=== PATIENT | male | born 1950 | race Caucasian/White ===

== ENCOUNTER 2022-09-28 14:04 | Outpatient (REF) | payer MEDICARE, MEDICAID, SELFPAY ==
--- NOTE | ~2022-09-28 | FL_ITS ---
EXAMINATION: XR BARIUM SWALLOW MODIFIED CLINICAL INFORMATION: Esophageal dysfunction COMPARISON: None available. TECHNIQUE: A modified barium swallow study is performed with pathology. FINDINGS: The patient was observed in the lateral projection while ingesting varying consistencies of barium as directed by the speech pathologist. No laryngeal penetration or aspiration was observed. Total dose 8.794 mGy DAP 1.721 Gycm/2 Time 0.7 min FL/FL barium swallow modified IMPRESSION: Modified barium swallow study. No aspiration demonstrated. Correlate with the speech pathologist report.
--- NOTE | 2022-09-28 16:31 | MHC.SL.IMP ---
Date of Plan of Treatment: 09/28/22 Onset of Symptoms/Illness: 05/20/22 Date Treatment Started: 09/28/22 Admitting Diagnosis: L-CVA w/ hemiparesis and aphasia Primary Speech & Language Diagnosis: R13.11 Oral Phase Dysphagia Secondary Speech & Language Diagnosis: R47.01 Aphasia Reason for Today's Visit: 55267 Modified Barium Swallow Study Pre-evaluation Dietary Consistencies: Chopped/Advanced (NDD3) Pre-evaluation Liquid Consistency: Thin Pre-evaluation Medication Administration: UNK Medical History: Modified Barium Swallow Study Fluoroscopic Evaluation of Swallowing Function CPT Code 31258 Evaluation Year: 2022 Reason for Study: Pt has history of CVA. Referring Physician: Paige Sawyer PA-C Evaluating Clinician: Carol Mohan MA, CCC-SADDLE MAKER Study Number: 1 Patient Name: Thang Mcmahan Status: Outpatient, Wheelchair Age: 72 Gender: Male Medical History L-CVA w/ hemiparesis and aphasia, PVD, HTN, HLD, falls, depression Current (pre-evaluation) Intake/Diet: Route: PO Diet Grade: ?Chopped? Liquid Consistencies: Thin Pre-Study Functional Oral Intake Scale (FOIS): 5- Total oral intake of multiple consistencies requiring special preparation Pain: None reported at time of study SUBJECTIVE: Pt is a 72 year old male, LTC resident of [facility]. He attended this exam accompanied by nursing staff from the living facility. Pt has history of stroke in May 2022, was discharged from acute rehab to LTC facility. He was seen for an outpatient speech evaluation [place] [facility] [place]. Pt was found to have severe Broca?s aphasia and was recommended to continue speech therapy at the facility. When seen for his speech evaluation, patient reported he was on a chopped diet. Today, pt denied having difficulty swallowing and endorsed that sometimes his food ?comes chopped up.? Oral Motor Exam Mouth Occlusion: Normal Oral-Facial Teeth Characteristics: Dentures Oral-Facial Teeth Miscellaneous Observation: Pt has top and bottom dentures Tongue Size: Normal Tongue Frenum Length: Tongue Range of Movement Description: Normal Tongue Speed of Movement Description: Reduced Tongue Strength of Movement (against opposing pressure): Reduced to L-side Tongue Movement Characteristics: Normal/Absent Is patient able to manage secretions?: Yes Food and Liquid Trials: Oral Impairment: Lip Closure: Did not test Oral Impairment: Tongue Control During Bolus Hold: Did not test Oral Impairment: Bolus Preparation/Mastication: 0=Timely and efficient chewing and mashing Oral Impairment: Bolus Transport/Lingual Motion: 2=Slowed tongue motion Oral Impairment: Oral Residue: 1=Trace residue lining oral structures Oral Impairment:Initiation of Pharyngeal Swallow: 2=Bolus head at posterior laryngeal surface of epiglottis Pharyngeal Impairment: Soft Palate Elevation: 0=No bolus between soft palate (SP)/pharyngeal wall (PW) Pharyngeal Impairment: Laryngeal Elevation: 1=Partial thyroid cartilage/arytenoids to epiglottic petiole movement Pharyngeal Impairment: Anterior Hyoid Excursion: 1=Partial anterior movement Pharyngeal Impairment: Epiglottic Movement: 0=Complete inversion Pharyngeal Impairment: Laryngeal Vestibular Closure:: 0=Complete: no air/contrast in laryngeal vestibule Pharyngeal Impairment: Pharyngeal Stripping Wave: 1=Present: diminished Pharyngeal Impairment: Pharyngeal Contraction: Did not test Pharyngeal Impairment: Pharyngoesophageal Segment Openin=Complete distension and complete duration: no obstruction of flow Pharyngeal Impairment: Tongue Base (TB) Retraction: 2=Narrow column of contrast/air between TB and posterior PW Pharyngeal Impairment: Pharyngeal Residue: 1=Trace residue within or on pharyngeal structures Pharyngeal Impairment: Esophageal Clearance Upright Position: Did not test Impressions and Recommendations OBJECTIVE: Time-out: performed at 14:45 Evaluation Start: 14:30; Stop: 14:32 Patient Positioning: Seated 70-90 degrees Viewing Planes: LATERAL ONLY Contrast: MBSImP? Standardized Protocol using commercially prepared, standardized Barium viscosities, including: Varibar? THIN LIQUID (40% w/v, <15 cps) MBSImP ID: [id number] MBSImP Results: Lip closure for intraoral bolus containment could not be assessed due to logistical reasons not related to physiologic impairment. Tongue control during bolus hold could not be assessed due to logistical reasons not related to physiologic impairment. Bolus preparation and mastication resulted in timely and efficient chewing and mashing. Bolus transport/lingual motion was with slowed tongue motion. Oral residue was a trace, lining oral structures. Initiation of the pharyngeal swallow occurred as the bolus head was at the posterior laryngeal surface of the epiglottis. Soft palate elevation resulted in no bolus between the soft palate and the pharyngeal wall. Laryngeal elevation was decreased, with partial superior movement of the thyroid cartilage/partial approximation of the arytenoids to the epiglottic petiole. Anterior hyoid excursion demonstrated partial anterior movement. Epiglottic movement resulted in complete inversion. Laryngeal vestibular closure was complete, as indicated by no air or contrast within the laryngeal vestibule at the height of the swallow. Pharyngeal stripping wave was present, but diminished. Pharyngeal contraction could not be determined due to logistical reasons not related to physiologic impairment. Pharyngoesophageal segment opening was completely distended for complete duration with no obstruction of bolus flow. Tongue base retraction allowed a narrow column of contrast or air between the retracted tongue base and the posterior pharyngeal wall. Pharyngeal residue was a trace within or on pharyngeal structures. Esophageal clearance in the upright position could not be assessed due to logistical reasons not related to physiologic impairment. Oral Impairment Score: 4 (absence of score, component 1component 2) Pharyngeal Impairment Score: 5 (absence of score, component 13) Esophageal Impairment Score: --- (absence of score, component 17) Laryngeal Penetration and Aspiration: Neither penetration nor aspiration was observed in today's study with Thin. ASSESSMENT: Clinician Assessment: This exam was conducted by a multidisciplinary team, which included a speech pathologist, radiologist, and mapping technician. Pt was seated at 90 degrees for lateral view only. Pt trialed the following liquid and solid consistencies: sequential sips thin liquid barium by cup, pureed solid (applesauce mixed with barium paste), ground solid (chicken salad with barium paste), whole barium pill tablet with sips of water and bite of applesauce. Pt was offered a bite of a shortbread cookie, but refused harder solids and indicated he would have difficulty chewing it. Pt demonstrated timely and efficient mastication pattern with soft solid. Lingual motion for the posterior transport of bolus was mildly slowed. Mild lingual residue cleared with subsequent swallow. Pharyngeal swallow trigger initiated as the bolus head reached the posterior laryngeal surface of the epiglottis. There was no nasopharyngeal reflux. Laryngeal elevation was incomplete with partial anterior hyoid excursion. Complete epiglottic inversion and complete laryngeal vestibular closure. There was no evidence of aspiration or penetration during this exam. There was trace residue on the tongue base, which subsequently cleared. Good clearance of the valleculae and pyriform sinuses. Pt attempted to swallow barium pill with sips of water. He swallowed the water, but was unable to clear the pill from his mouth. Pt was able to swallow pill with teaspoon of applesauce, pill passed through the pharynx with no hang up. Liquid Intake Recommendation: Thin Liquid Intake Strategies: Small Sips Dietary Recommendations: Grnd/Mech Altered (NDD2) Medication Administration: Whole with Puree Please contact the pharmacy regarding appropriate crushable or liquid drug formulations that are available whenever modified delivery is recommended. Compensatory Strategies Recommended: Sitting Upright (90 deg), Double Swallow, Small Bites and Sips, Alternate Liquids/Solids, Rate of Ingestion Change, Oral Check Supervision during eating and or drinking: Total Supervision (1:1) Recommendation for Speech Therapy: Speech Therapy through Rehab Facility Text Comment: Recommend total supervision and aspiration precautions, continue with modified diet for ease of mastication (ground/mech altered versus chopped/advanced per pt's tolerance). Pt was seen by SADDLE MAKER at [facility] [place] speech evaluation on 08/15/22 and was recommended to continue speech therapy at the living facility for treatment of severe Broca's aphasia. Recommend speech therapy to also target further education and support regarding the modified diet and aspiration precautions. Intake Recommendations: Route: PO Diet Grade: Mechanical Soft vs. Chopped/Advanced Liquid Consistencies: Thin Post-Study Functional Oral Intake Scale (FOIS): 5- Total oral intake of multiple consistencies requiring special preparation No evidence of aspiration or penetration during this exam. Pt demonstrated good clearance of oral cavity and pharynx. Pt was offered trials of harder solid consistency, but refused and indicated he would not be able to chew it. Therefore we were not able to trial beyond ground textures during this exam. Pt has top and bottom dentures and tolerated a soft chicken salad during this exam. Recommend ground/mechanically altered diet (NDD2), or if tolerated by patient, continue with chopped/advanced (NDD3) textures, thin liquids, and pills whole in puree. Recommend supervision during meals, provide assistance with tray set up and throughout meal as needed (i.e. opening of containers, providing cues as needed for aspiration precautions): take small bites, chew food well, moisten foods with sauces/gravies as needed, clear oral cavity before taking more bites, take small sips, one sip at a time, upright 90 degree position. Prognosis for Improvement: The prognosis for the patient to meet nutritional needs by mouth is excellent based on degree of impairment. Clinician - Supplemental, Miscellaneous Communication: It is important to note MBSS objective studies are snapshots in time and Patient function might vary with factors such as time of day or concomitant medical conditions. For this reason, the final treatment plan for this patient should rest with their medical care team. Additional recommendations should be considered with the totality of the Patient in mind. Thank for the opportunity to participate in the care of this patient. If you have any questions about the content of this report, please contact the [facility] at [facility]. Education: Education regarding findings from today's study and plans for therapy were provided to Patient only through Verbal Instruction. Understanding was expressed by the Patient only. Hose Mender Clinician/Clinical Fellow: No Supervisory Statement: N/A Speech Language Pathologist: Carol Mohan M.A., [facility]ADD[facility]
== END 2022-09-28 14:05 | disposition home or self-care (01) ==
LOC: HO.XRAY 14:04
PROVIDERS: Visit Provider Physician Assistant Medical
DX: R13.11 Dysphagia, oral phase (principal); R47.01 Aphasia
CPT/HCPCS: 74230; 92611

== ENCOUNTER → 2024-02-21 13:04 | Outpatient (RCR) | payer MEDICARE, MEDICAID, SELFPAY ==
--- NOTE | 2022-08-19 10:51 | MHC.SP.ADU ---
Referring provider: Dr. 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 He was discharged from acute rehab to a long-term care facility in [place], [place]. It is unclear why he is being sent for this evaluation in the outpatient setting. Typically, he would be evaluated by an in-house GROCERY TEAM MEMBER at his snf. After the evaluation, I spoke briefly with his Brother and RUTHA, and he shared my confusion. He reports he will forward the information to his Sister and Pt HCP, Shaun. Medical History: Other: PVD HTN HLD Falls Depression Insomnia Gout Medication List: Recent Hospitalizations: No Respiratory Needs: Room Air Patient Orientation: Person, Place Only Social History: Employment Status: Retired Highest level of education obtained: Unknown/Unable to report Current Living Situation: [facility] [place]. Assistive Devices in use: Other Comment: Pt arrived in a Stretcher. Due to the limitations of our space, the evaluation was performed with modifications to the testing environment. Past Speech Language Therapy: His Brother reports he had GROCERY TEAM MEMBER services at the acute care level. Swallowing History: Dysphagia Specific: Other Comments: Pt reports no Dysphagia. He is to be scheduled for a Modified Barium Swallow Study at this facility. Pre-eval Risk for Aspiration: Pre-evaluation Dietary Consistencies: Chopped/Advanced (NDD3) Pre-eval Liquid Intake: Thin Pre-eval Medication Intake: Reported Speech, Language, Cognition difficulties: Understanding Memory Speaking Problem Solving Quality of Life: Patient Stated Goal of Speech-Language Therapy: To determine needs and benefit from continued Speech/Language Therapy. Assessment Speech Production: Aphasic: Nonfluent Paucity of Speech Clinical Impression: Intact Observations: Pt's Speech output is limited d/t underlying Aphasia, however his Speech Intelligibility is subjectively judged to be clear. Informal Voice Assessment: Voice Loudness: Normal Voice Nasal Resonance: Voice Oral Resonance: Voice Phonatory-based Quality: Normal Voice Pitch: Normal Voice Other Observations: Clinical Impression: Did Not Test Tests of Speech & Lang Adults: WAB-R Clinical Impression: Impaired Observations: Pt willingly participated in all subtests of the WAB-R. He did get frustrated at times when a task became too difficult for him. Of note, the Sequential Commands subtest, which requires the patient to reach on a table to grab objects may have been negatively impacted by the restraints of our testing environment. Thang's scores on the WAB-R came out as follows: Spontaneous Speech Score: 2 Auditory-Verbal Comprehension Score: 9.05 Repetition Score: 3.8 Naming and Word Finding Score: 3.9 Aphasia Quotient (AQ): 37.5 Pt's performance during testing, as well as his overall presentation are consistent with a Severe Broca's Aphasia. Of note, he had atypical difficulty with Repetition tasks, including at the word level. Relative strengths were in auditory comprehension and following directions. As directions became longer or contained words with complex grammatical content, his performance began to break down. Tests of Cognition: Clinical Impression: Did Not Test Impressions and Recommendations Summary: Impact on Daily Function/Activity Limitations: Daily Activities: Severe Interpersonal Interactions: Severe Community: Severe Prognosis for Improvement: Good Patient Education: Completed: Yes Patient/Caregiver Education: Described Results of Evaluation Family/Caregivers expressed understanding of results Comments/Barriers to Learning: Physical Therapist Aide Clinican/Clinical Fellow: No Supervisory Statement: N/A Speech Language Pathologist: Oleg Mcdermott M.A., [facility]-GROCERY TEAM MEMBER
== END | disposition home or self-care (01) ==
LOC: HO.SH 08-15 12:24
PROVIDERS: Visit Provider Family Medicine
DX: R47.01 Aphasia (principal); I69.391 Dysphagia following cerebral infarction
CPT/HCPCS: 92523

== ENCOUNTER 2024-07-04 06:23 | Outpatient (REF) | payer MEDICARE, MEDICAID, SELFPAY ==
[2024-07-04 06:28] LABS: MANUAL DIFF FLAG NO
--- OUTSIDE RECORDS SUMMARY | 2024-07-04 06:28 | XMS_ITS | Continuity of Care Document ---
Author Organization [facility], [facility] Address [address] [place] [address] Care Team Providers Care Desk Assistant Name Role Phone ELIANA PALOMO Primary Care Provider [facility] - 4TH FLOOR OTHER Assessment No assessment recorded. Plan of Treatment Reminders Order Date Submit Date Provider Last Modified By Organization Details Last Modified Time Details Appointments None record ed. Lab None record ed. Referral None record ed. Procedures None record ed. Surgeries None record ed. Imaging None record ed. Medication Orders None record ed. Patient TargetsNo targets recorded. Patient InstructionsNo instructions recorded. Reason for Referral None Reported. Problems Name Problem SNOMED Code Status Onset Date Resolution Date Notes Provider Name and Address Organization Details Recorded Time Acute gangrenous cholecystit is 39831208 Active 2021 ANGELINA CORONA PA-C [address] , [address], [place], [address], [facility] [email or web address] 2 21:43:45 Cirrhosis of liver 70436294 Active 2021 ?VARGAS ANGELINA CORONA PA-C [address] , [address], [place], [address], [facility] [email or web address] 2 21:43:59 Insomnia co-occurren t and due to medical condition 4757547733975 5 Active 2021 ANGELINA CORONA PA-C [address], [address], [place], [address], [facility] [email or web address] 2 21:44:26 Essential hypertensio n 51552162 Active 2021 ANGELINA CORONA PA-C [address] , [address], [place], [address], [facility] [email or web address] 2 21:44:32 Depressive disorder 01437918 Active 2021 ANURADHA MATHEW-C [address], [address], [place], [address], [facility] 2 21:44:41 Dyslipidemi a 055725237 Active 2021 ANURADHA MATHEW-C [address], [address], [place], [address], [facility] 2 21:44:49 Chronic constipatio n 956962411 Active 2021 ANURADHA MATHEW-C [address], [address], [place], [address], [facility] 2 21:45:08 Hypophospha temia 3346332 Active 2021 ANURADHA MATHEW-C [address], [address], [place], [address], [facility] 2 21:45:19 Secondary hypothyroid ism 87254994 Active 2021 ANURADHA MATHEW-C [address], [address], [place], [address], [facility] 2 21:45:33 Peripheral vascular disease 392576326 Active 2021 ANURADHA MATHEW-C [address], [address], [place], [address], [facility] 2 21:46:01 Obstructive sleep apnea syndrome 34557212 Active 2021 ANURADHA MATHEW-C [address], [address], [place], [address], [facility] 2 21:46:14 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 844218110 Active 2021 RLE ANURADHA MATHEW-C [address], [address], [place], [address], [facility] 2 21:46:42 CVA - cerebrovasc ular accident due to cerebral artery occlusion 152151492 Active 2021 ANURADHA MATHEW-C [address], [address], [place], [address], [place] [facility] 2 21:46:59 Oropharynge al dysphagia 59504834 Active 2021 ANGELINAANURADHA BECKER-C [address], [address], [place], [address], [place] [facility] 2 21:47:15 Retention of urine 351840452 Active 2021 ANURADHA MATHEW-C [address], [address], [place], [address], [place] [facility] 2 21:47:27 Coronary arterioscle rosis 89526167 Active 2021 ANURADHA MATHEW-C [address], [address], [place], [address], [facility] 2 21:47:35 Gout 84792428 Active 2021 ANURADHA MATHEW-C [address], [address], [place], [address], [facility] 2 21:47:42 Hypomagnese mary 931317579 Active 2021 ANURADHA MATHEW-C [address], [address], [place], [address], [facility] 2 21:47:53 Hypokalemia 14421034 Active 2021 ANURADHA MATHEW-C [address], [address], [place], [address], [facility] 2 21:48:01 Mild protein-renetta orie malnutritio n (weight for age 75-89 percent of standard) 049295482 Active 2021 ANURADHA MATHEW-C [address], [address], [place], [address], [facility] 2 21:48:37 Xerophthalm ia 175389806 Active 2021 ANURADHA MATHEW-C [address], [address], [place], [address], [facility] 2 21:48:48 Gastroesoph ageal reflux disease without esophagitis 082213344 Active 2021 ANGELINA CORONA PA-C [address], [address], [place], [address], [facility] 2 21:49:02 Chronic low back pain 653986959 Active 2021 ANGELINA CORONA PA-C [address], [address], [place], [address], [facility] 2 21:49:16 Weight loss 93278252 Active 2021 ANGELINA CORONA PA-C [address], [address], [place], [address], [facility] 2 21:49:27 Right hemiparesis 003185185 Active 2021 Marielle Monroe MD [address], [address], [place], [address], [facility] 2 20:52:36 Aphasia 89871227 Active 2021 Marielle Monroe MD [address], [place], [address], [facility] 2 20:53:28 Dysphagia 22348541 Active 2023 Rafia Bowling NP [address], [place], [address], [facility] 4 11:59:05 Problem Notes None recorded. Medical Equipment None Reported. Allergies No known drug allergies Medications Not known to be on any medication Vitals Date Recorded Body height Body weight Body mass index (BMI) Heart rate Respiratory rate Body temperature Oxygen saturation Oxygen saturation in Arterial blood by Pulse oximetry Systolic blood pressure Diastolic blood pressure Provider Name and Address Organization Details Last Updated DateTime 5 175.26 cm 350628. 32 g 36.5 kg/m2 78 /min 18 /min 98.6 [degF] 95 % 95 % 126 mm[Hg] 82 mm[Hg] Rafia Bowling NP [address], [address], [place], [address], [facility] [email or web address] [facility] 5 08:21:10 Social History Question Answer Notes LastModified by Organizat ion Details LastModified Time Tobacco Smoking Status Former Smoker ANGELINA CORONA PA-C [address] [facility], [address], [place], [address], [facility] [email or web address] 05/23/2022 21:27:09 Do You Have An Advance Directive? Yes Revised 09/16/22: DNR/DNI; Ok For Short-term NIV; Ok For Txr To Hospital; No Dialysis; No Artificial Nutrition; No Artificial Hydration [email or web address] Information not available 09/16/2022 What Is Your Level Of Alcohol Consumption? None [email or web address] Information not available 05/23/2022 What Is Your Code Status? Full Code Information not available 05/23/2022 Where Do You Live? [facility] Information not available 05/26/2022 Legal Guardian? No [email or web address] Informati on not available 05/23/2022 Do You Have A Medical Power Of Entertainment Usher? Yes Valid Copy Uploaded In PCC, Not Invoked [email or web address] Information not available 05/23/2022 What Was The Date Of Your Most Recent Tobacco Screening? 05/23/2022 [email or web address] Information not available 05/23/2022 Do You Have An Out Of Hospital DNR? No [email or web address] Information not available 05/23/2022 Do You Use Any Illicit Or Recreational Drugs? No [email or web address] Information not available 05/23/2022 Has Tobacco Cessation Counseling Been Provided? No N/A As Pt No Longer Smokes [email or web address] Information not available 05/26/2022 Do You Or Have You Ever Used Any Other Forms Of Tobacco Or Nicotine? No [email or web address] Information not available 05/23/2022 Sex: Unknown Functional Status None recorded. Mental Status None recorded. Family History Nothing Reported Notes:n/c Medical History No medical history recorded. Immunizations Vaccine Type Date Status Note Provider Nam e and Address Organization Details Recorded Time pneumococcal polysaccharide PPV23 5 completed ANGELINA CORONA PA-C [address] [facility], [address], [place], [address], [place] [facility] 05/23/2022 21:39:38 Pneumococcal conjugate PCV 13 6 completed ANGELINA CORONA PA-C [address] [facility], [address], [place], [address], [facility] 05/23/2022 21:39:52 COVID-19 vaccine, vector-nr, rS-Ad26, PF, 0.5 mL 2 completed ANGELINA CORONA PA-C [address] [facility], [address], [place], [address], [facility] 05/23/2022 21:42:19 COVID-19 vaccine, vector-nr, rS-Ad26, PF, 0.5 mL 1 completed ANGELINA CORONA PA-C [address] [facility], [address], [place], [address], [facility] 05/23/2022 21:42:26 Past Encounters Encounter ID Performer Location Encounter Start Date Encounter Closed Date Diagnosis/Indication Diagnosis SNOMED-CT Code Diagnosis ICD10 Code Diagnosis Note [id number] Rafia Bowling NP [address] [address] 07/01/2024 15:58:32 07/03/2024 10:54:04 Chronic pain 37564265 G89.29 neck paindiclof enac gel 1% 2grams to left and posterior neck bidmonitor Denture lost 245680722 K 08.59 ill fitting denture to upper palatedent al consult pendinghe is aware [facility] and he is on the list to be seen by [facility] to monitor for new denture History of cerebrovascular accident 860947993 Z86.73 conteliqui s 5 mg bidlipitor 40 mg qdcontinue supportive care Essential hypertension 46090541 I10 stablelisi nopril 10 mg qdmonitor bp and need to titrate, tight control not needed in elderly man, <150 systolic bp goal Secondary hypothyroidism 31192438 E03.8 stablesynt hroid 200 mcg qdprior dose adjustment repeat tsh prn Gastroesop hageal reflux disease without esophagitis 712616333 K21.9 No sxs on no meds. denies any refluxMoni tor Depressive disorder 5472 5287 F33.1 no longer on paxil, mood goodContin ueMonitor moodConsid er psych consult Cirrhosis of liver 007 K74.69 Likely VARGAS as pt denies EtOHAvoid hepatotoxi c meds as able [id number] Rafia Bowling NP [address] [place] [address] 07/03/2024 08:19:40 07/03/2024 08:41:09 Chronic pain 05325862 G89.29 neck paindiclof enac gel 1% 2grams to left and posterior neck bidmonitor at [facility] Denture lost 959033653 K 08.59 ill fitting denture to upper palatedent al consult pendingadh esive denture cream to helphe is aware [facility] [place] and he is on the list to be seen by [facility] to monitor History of cerebrovascular accident 864393662 Z86.73 conteliqui s 5 mg bidlipitor 40 mg qdcontinue supportive care at [facility] Essential hypertension 37905656 I10 stable 126/82 todaylisin opril 10 mg qdmonitor bp and need to titrate, tight control not needed in elderly man, <150 systolic bp goalmonito r at [facility] Secondary hypothyroidism 95595718 E03.8 stablesynt hroid 200 mcg qdrepeat tsh prn at [facility] facility he is due for level in July Gastroesop hageal reflux disease without esophagitis 364714003 K21.9 No sxs on no meds. denies any refluxMoni tor at [facility] Depressive disorder 2092 7547 F33.1 no longer on paxil, mood good hereMonito r moodConsid er psych consult as needed at new facility Cirrhosis of liver 007 K74.69 Likely VARGAS as pt denies EtOHAvoid hepatotoxi c meds as able at new facility Fitting of denture 36907 09680 Z46.3 ill fitting denture to upper palate, he reports it is too loosedenta l consultadh esive denture cream to help with denture in the meantimemo nitor outpt at [facility] Intertrigo 33185054 L30. 4 resolve to right axillacont wash area, pat dry thoroughly , and nystatin powder bidseparat e skin folds to right axilla with cotton, abd pad, or johonny if ablelikely will require antifungal powder consistent lymonitor at new facility Health Concerns Section Related Observation LastModified by Organization Detai ls LastModified Time None Recorded Concern Status LastModified by Organization Details LastModified Time None Recorded Payers Encounter Date Sequence Insurance Name Policy Number Policy Hernandez Covered Member ID Hernandez Member ID Guarantor Name 07/03/2024 1 [place] [employer] Thang Mcmahan [id number] Thang Mcmahan 07/03/2024 2 MEDICAID-[place]: [facility] Thang Mcmahan [id number] Thang Mcmahan Notes Date Note Type Note Provider Name and Address Organization Details Recorded Time 07/03/2024 text/html Pt is a 74 yo ma [facility] resident seen for a discharge summary for transfer to [facility]. Medical history is remarkable for history of CVA 2021 with residual aphasia, dysphagia, right hemiparesis, SAMARIA on CPAP, VARGAS, CAD s/p NSTEMI, PVD, history AAA s/p endovascular repair, s/p left TKA, GERD, chronic pain, hypothyroidism, history acute gangrenous cholecystitis Mar 2022 s/p partial cholecystectomy, ERCP with sphincterotomy and stent for biliary leak Thang is a long care patient here at [facility] who is stable and has no complaints or concerns today. Since here at [facility] he has been doing well and remains with aphagia and right sided weakness since CVA 2021 and dependent on ADLs and remains a eric lift. He is seen in his room in [facility] and looking forward to the transition. He occasionally gets fungal rash to right axilla and remains on nystatin powder,however clear with maintenance powder. His TSH is followed and therapeutic since adjustment last year. He was originally transferred form [facility] in 10/2021 after an acute hospitalization for a left MCA stroke. He was transitioned from [facility] to LTC due to needs too great to be managed in the community. of note: He was sent back to ED on 04/08/22 from [facility] due to hypotension, weakness and malaise. He was found to have acute gangrenous cholecystitis and is now s/p partial cholecystectomy and txed with abxs. He also needed an ERCP with sphincterotomy and stent placement on 04/19 due to biliary leak. He returned to [facility] on 04/21. He had a RHONA drain in place until 04/27. He reportedly was back to baseline since then. He continues with aphasia and right sided weakness. Family requested transfer here for LTC. He was transferred here on 05/20. MOLST: full code - signed 10/13/21; HCP invoked 05/26/22 Rafia Bowling NP [address] [facility], [address], [place], [address], [facility] 07/03/2024 08:41:07
--- OUTSIDE RECORDS SUMMARY | 2024-07-04 06:28 | XMS_ITS | Data Portability ---
Author Organization [facility] [employer] [facility], Main Office Address [address], [address] [place] [address] Care Team Providers Care Cdl Program Coordinator Name Role Phone ELIANA PALOMO Primary Care Provider [facility] OTHER Assessment No assessment [...] Details Recorded Time Acute gangrenous cholecystit is 50890010 Active 2021 ANGELINA CORONA PA-C [address] [facility], [address], [place], [address], [facility] [employer] 2 21:43:45 Cirrhosis of liver 44622527 Active 2021 ?VARGAS ANGELINA CORONA PA-C [address] [facility], [address], [place], [address], [facility] [employer] 2 21:43:59 Insomnia co-occurren t and due to medical condition 4739045457946 5 Active 2021 ANGELINA CORONA PA-C [address] [facility], [address], [place], [address], [facility] [employer] 2 21:44:26 Essential hypertensio n 98340862 Active 2021 ANGELINA CORONA PA-C [address] [facility], [address], [place], [address], [facility] [employer] 2 21:44:32 Depressive disorder 02760003 Active 2021 ANURADHA MATHEW-C [address], [address], [place], [address], [employer] [facility] 2 21:44:41 Dyslipidemi a 103164166 Active 2021 ANGELINA CORONA PA-C [address], [address], [place], [address], [employer] [facility] 2 21:44:49 Chronic constipatio n 012157360 Active 2021 ANGELINA CORONA PA-C [address], [address], [place], [address], [employer] [facility] 2 21:45:08 Hypophospha temia 8608235 Active 2021 ANURADHA MATHEW-C [address], [address], [place], [address], [employer] 2 21:45:19 Secondary hypothyroid ism 37862215 Active 2021 ANGELINA CORONA PA-C [address], [address], [place], [address], [employer] 2 21:45:33 Peripheral vascular disease 056683472 Active 2021 ANURADHA MATHEW-C [address], [address], [place], [address], [facility] 2 21:46:01 Obstructive sleep apnea syndrome 83220627 Active 2021 ANURADHA MATHEW-C [address], [address], [place], [address], [employer] 2 21:46:14 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 104525489 Active 2021 RLE ANGELINA CORONA PA-C [address], [address], [place], [address], [employer] 2 21:46:42 CVA - cerebrovasc ular accident due to cerebral artery occlusion 781312843 Active 2021 ANURADHA MATHEW-C [address], [address], [place], [address], [facility] 2 21:46:59 Oropharynge al dysphagia 48398026 Active 2021 ANGELINAANURADHA BECKER-C [address], [address], [place], [address], [place] [facility] 2 21:47:15 Retention of urine 379593042 Active 2021 ANURADHA MATHEW-C [address], [address], [place], [address], [place] [facility] 2 21:47:27 Coronary arterioscle rosis 80441140 Active 2021 ANURADHA MATHEW-C [address], [address], [place], [address], [facility] 2 21:47:35 Gout 55204784 Active 2021 ANURADHA MATHEW-C [address], [address], [place], [address], [facility] 2 21:47:42 Hypomagnese mary 300193756 Active 2021 ANURADHA MATHEW-C [address], [address], [place], [address], [facility] 2 21:47:53 Hypokalemia 75102094 Active 2021 ANURADHA MATHEW-C [address], [address], [place], [address], [facility] 2 21:48:01 Mild protein-renetta orie malnutritio n (weight for age 75-89 percent of standard) 870926919 Active 2021 ANURADHA MATHEW-C [address], [address], [place], [address], [facility] 2 21:48:37 Xerophthalm ia 374999777 Active 2021 ANURADHA MATHEW-C [address], [address], [place], [address], [facility] 2 21:48:48 Gastroesoph ageal reflux disease without esophagitis 805883286 Active 2021 ANGELINA CORONA PA-C [address], [address], [place], [address], [facility] 2 21:49:02 Chronic low back pain 578707971 Active 2021 ANGELINA CORONA PA-C [address], [address], [place], [address], [facility] 2 21:49:16 Weight loss 47231617 Active 2021 ANGELINA CORONA PA-C [address], [place], [address], [facility] 2 21:49:27 Right hemiparesis 286570261 Active 2021 Marielle Monroe MD [address], [place], [address], [facility] 2 20:52:36 Aphasia 05353849 Active 2021 Marielle Monroe MD [address] , [address], [place], [address], [employer] 2 20:53:28 Dysphagia 28923227 Active 2023 Rafia Bowling NP [address], [place], [address], [facility] 4 11:59:05 Problem Notes None recorded. Medical Equipment None Reported. Allergies No known drug allergies Medications Not known to be on any medication Vitals Date Recorded Body height Body mass index (BMI) Body weight Heart rate Respiratory rate Body temperature Oxygen saturation Oxygen saturation in Arterial blood by Pulse oximetry Systolic blood pressure Diastolic blood pressure Provider Name and Address Organization Details Last Updated DateTime 4 175.26 cm 36 kg/m2 401129. 54 g 70 /min 18 /min 98.4 [degF] 98 % 98 % 128 mm[Hg] 82 mm[Hg] Rafia Bowling NP [address], [place], [address], [facility] 4 14:06:17 Date Recorded Body height Body mass index (BMI) Body weight Heart rate Respiratory rate Body temperature Oxygen saturation Oxygen saturation in Arterial blood by Pulse oximetry Systolic blood pressure Diastolic blood pressure Provider Name and Address Organization Details Last Updated DateTime 4 175.26 cm 36.2 kg/m2 477285. 13 g 245 /min 18 /min 97.4 [degF] 96 % 96 % 134 mm[Hg] 76 mm[Hg] Rafia Bowling NP [address] [facility] [address], [place], [address], [employer] 4 18:34:14 Date Recorded Body height Body weight Heart rate Respiratory rate Body temperature Oxygen saturation Oxygen saturation in Arterial blood by Pulse oximetry Systolic blood pressure Diastolic blood pressure Provider Name and Address Organization Details Last Updated DateTime 4 175.26 cm 695439. 35 g 76 /min 18 /min 97.4 [degF] 96 % 96 % 134 mm[Hg] 76 mm[Hg] Rafia Bowling NP [address] [facility] [address], [place], [address], [facility] 4 12:41:39 Date Recorded Body height Heart rate Respiratory rate Body temperature Oxygen saturation Oxygen saturation in Arterial blood by Pulse oximetry Systolic blood pressure Diastolic blood pressure Provider Name and Address Organization Details Last Updated DateTime 5 175.26 cm 78 /min 18 /min 98.6 [degF] 95 % 95 % 126 mm[Hg] 82 mm[Hg] Rafia Bowling NP [address] [facility] [address], [place], [address], [facility] 5 17:36:06 Date Recorded Body height Body weight Body mass index (BMI) Heart rate Respiratory rate Body temperature Oxygen saturation Oxygen saturation in Arterial blood by Pulse oximetry Systolic blood pressure Diastolic blood pressure Provider Name and Address Organization Details Last Updated DateTime 5 175.26 cm 560835. 32 g 36.5 kg/m2 78 /min 18 /min 98.6 [degF] 95 % 95 % 126 mm[Hg] 82 mm[Hg] Rafia Bowling NP [address], [address], [place], [address], [facility] 5 08:21:10 Social History Question Answer Notes LastModified by Organizat ion Details LastModified Time Tobacco Smoking Status Former Smoker ANGELINA CORONA PA-C [address] [facility], [address], [place], [address], [facility] [employer] 05/23/2022 21:27:09 Do You Have An Advance Directive? Yes Revised 09/16/22: DNR/DNI; Ok For Short-term NIV; Ok For Txr To Hospital; No Dialysis; No Artificial Nutrition; No Artificial Hydration [email or web address] Information not available 09/16/2022 What Is Your Level Of Alcohol Consumption? None [email or web address] Information not available 05/23/2022 What Is Your Code Status? Full Code [email or web address] Information not available 05/23/2022 [facility] Information not available 05/26/2022 Legal Guardian? No [email or web address] Informati on not available 05/23/2022 Do You Have A Medical Power Of Traffic Enumerator? Yes Valid Copy Uploaded In [facility], Not Invoked [email or web address] Information not available 05/23/2022 What Was The Date Of Your Most Recent Tobacco Screening? 05/23/2022 [email or web address] Information not available 05/23/2022 Do You Have An Out Of Hospital DNR? No [email or web address] Information not available 05/23/2022 Do You Use Any Illicit Or Recreational Drugs? No [email or web address] Information not available 05/23/2022 Has Tobacco Cessation Counseling Been Provided? No N/A As Pt [email or web address] Information not available 05/26/2022 Do You Or Have You Ever Used Any Other Forms Of Tobacco Or Nicotine? No [email or web address] Information not available 05/23/2022 Sex: Unknown Functional Status None recorded. Mental Status None recorded. Family History Nothing Reported Notes:n/c Medical History No medical history recorded. Immunizations Vaccine Type Date Status Note Provider Nam e and Address Organization Details Recorded Time pneumococcal polysaccharide PPV23 5 completed ANGELINA CORONA PA-C [address] [facility], [address], [place], [address], [facility] 05/23/2022 21:39:38 Pneumococcal conjugate PCV 13 6 completed ANGELINA CORONA PA-C [address] [facility], [address], [place], [address], [facility] 05/23/2022 21:39:52 COVID-19 vaccine, vector-nr, rS-Ad26, PF, 0.5 mL 2 completed ANGELINA CORONA PA-C [address] [facility], [address], [place], [address], [facility] 05/23/2022 21:42:19 COVID-19 vaccine, vector-nr, rS-Ad26, PF, 0.5 mL 1 completed ANGELINA CORONA PA-C [address] [facility], [address], [place], [address], [facility] 05/23/2022 21:42:26 Past Encounters Encounter ID Performer Location Encounter Start Date Encounter Closed Date Diagnosis/Indication Diagnosis SNOMED-CT Code Diagnosis ICD10 Code Diagnosis Note [id number] ANGELINA CORONA PA-C [facility] [address] [address] 05/23/2022 13:02:46 05/26/2022 13:07:09 Acute gangrenous cholecystitis 69550249 K81.0 s/p subtotal cholecyste ctomyf/u GI Deep venou s thrombosis of femoropopliteal vein 075146560 I82.499 Eliquis CVA - cere brovascular accident due to cerebral artery occlusion 186614914 I63.50 ASA, Eliquis, statin Coronary arteriosclerosis 51749220 I25.10 ASA, Eliquis, statin Chronic low back pain 27 8367947 M54.50 hx injections APAP prn Chronic constipation 236 626918 K59.09 scheduled and prn bowel medsf/u prn Cirrhosis of liver 21003 007 K74.60 ?VARGAS as pt denies EtOHcautio n with hepatotoxi c meds Dyslipidemia 323093161 E 78.5 statin Essential hypertension 39196721 I10 monitor BPs and adjust meds prn Gastroesop hageal reflux disease without esophagitis 443296697 K21.9 monitor and f/u prn Gout 68549736 M10.9 Allopurino l Hypokalemia 51130802 E87 .6 follow divalents Hypomagnesemia 676320677 E83.42 update level Hypophosphatemia 2139631 E83.39 update level Mild prote in-calorie malnutrition (weight for age 75-89 percent of standard) 314476387 E44.1 RD consult Obstructiv e sleep apnea syndrome 68720443 G47.33 CPAPf/u prn Oropharyng eal dysphagia 28665083 R13.12 modified dietSLP Peripheral vascular disease 321514657 I73.9 vasculopat h Retention of urine 44689 4002 R33.9 prior FoleyFollo w clinically Secondary hypothyroidism 03421032 E03.8 update TSH Weight loss 18136003 R63 .4 update TSHMonitor weightsRD also following 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 Artificial tears Insomnia c o-occurrent and due to medical condition 0446969978 9105 G47.01 Melatonin Depressive disorder 3548 9007 F32.A ProzacCons ider psych consult [facility] ed risk for falls 938483459 Z91.81 PT/OT [id number] ANGELINA CORONA PA-C [facility] [address] [address] 05/25/2022 17:39:55 06/24/2022 12:59:03 Hypothyroidism 25194557 E03.9 TSH markedly elevated on labs but was nearly suppressed only 2 months ago-repeat TSH in 2 weeks-f/u when results are available, which will determine if levothyrox ine will be added Exposure t o Influenzavirus 383218369 Z20.828 CrCl 101.2 per CC&G ABW-Tamifl u 75 mg po daily x 14 days [id number] Marielle Monroe MD [facility] [address] 05/26/2022 17:47:00 05/31/2022 16:03:19 Acute gangrenous cholecystitis 15571794 K81.0 Resolved.H as stent in place.Will have repeat ERCP for stent removal in 07/2022.Marlen itor sxs. Deep venou s thrombosis of femoropopliteal vein 926785358 I82.511 Has now been on Eliquis 5 mg BID since 09/2021. Likely can be d/c'd.Will need to check with vascular surgeon. CVA - cere brovascular accident due to cerebral artery occlusion 771160820 I63.312 May still have some improvemen t with continued rehab'Cont inue ASA 81 mg qd, atorvastat in 40 mg qd and Trumann 3 Fish oil 3000 mg qd.Monitor for new sxs. Coronary arteriosclerosis 85188926 I25.10 No recent sxs.Contin ue meds as above.Uncl ear why he is not on a beta truman.Wi ll f/u with cardio as planned. Chronic low back pain 27 0263741 M54.59 Hx of cortisone injections Continue APAP 650 mg q 4 hrs prn'Monito r sxs. Cirrhosis of liver 007 K74.69 Likely VARGAS as pt denies EtOHAvoid hepatotoxi c meds as able Dyslipidemia 539160731 E 78.49 Continue statin and fish oil as above.Rea tor labs yearly. Essential hypertension 00051140 I10 Good control on lisinopril 10 mg qd.Monitor BP and labs. Gastroesop hageal reflux disease without esophagitis 603378631 K21.9 No sxs on no meds.Monit or Obstructiv e sleep apnea syndrome 51594158 G47.33 Continue CPAPMonito r Oropharyng eal dysphagia 14909289 R13.12 Continue chopped diet with thin liquids.SL P and clerk entry level following. Retention of urine 21849 4002 R33.8 Hx of needing FoleyMonit or urinary function Secondary hypothyroidism 71282978 E03.8 TSH extremely elevated.H ad been on 200 mcg levothyrox ine [facility] TSH was 0.04 at that time and levothyrox ine was stopped. No TSH since then.Will restart levothyrox ine at 100 mcg qd and recheck TSH in 4 wks. 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 Depressive disorder 4950 9000 F33.1 Continue fluoxetine 20 mg qdMonitor mood.Consi delfino psych consult Gout 68141121 M10.09 No current sxs.Contin ue allopurino l 300 mg qd.Monitor for flare.Chec k uric acid prn Exposure t o Influenzavirus 772724456 Z20.828 With several cases of influenza on the floor.Is on Tamiflu 75 mg qd x 14 days for prophylaxi s.Monitor for sxs. Aphasia 39482955 R47.01 With mod. 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 Right hemiparesis 313628 009 G81.01 With minimal improvemen t over past few months.Con tinue PT/OT as needed.Pro vide supportive care.Monit or sxs. [id number] ANGELINA CORONA PA-C [facility] [address] [address] 06/01/2022 14:11:45 06/24/2022 13:33:32 CVA - cerebrovascular accident due to cerebral artery occlusion 821992407 I63.312 ASA, Eliquis, statinPT/O T/SLPf/u prn [id number] ANGELINA CORONA PA-C [facility] [address] [address] 06/14/2022 20:53:20 06/29/2022 19:47:45 Acute COVID-19 9212984267 U07.1 CrCl 101.2 per CC&G ABW-start Paxlovid 300-100 mg po bid x 5 days-start when available- hold Lipitor x 7 days-decre ase Eliquis to 2.5 mg po bid while on Paxlovid-w ill not monitor TFTs since brief course of Paxlovid-w ill not adjust Prozac dose since low dose [id number] ANGELINA CORONA PA-C [facility] [address] [address] 06/15/2022 17:28:06 06/29/2022 19:57:22 Acute COVID-19 6789737567 U07.1 Paxlovid not available -- will d/cStart molnupirav ir 800 mg po bid x 5 days-start when availableP recautions per facility protocolFo llow clinically [id number] ANGELINA CORONA PA-C [facility] [address] [address] 06/23/2022 14:04:33 07/07/2022 16:10:49 Weight loss 14439257 R63.4 TSH being followed due to significan t hypothyroi dism from non-compli ance PTARecent COVIDSigni ficant illness 04/2022Mon itor weightsRD also following 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 201007147 I69.320 INTERNATIONAL SPECIALIST Acute COVID-19 769603168 8 U07.1 s/p molnupirav irclinical ly recoveredf /u prn [id number] ANGELINA CORONA PA-C [facility] [address] [address] 06/27/2022 17:07:05 07/14/2022 10:49:17 Hypothyroidism 77091563 E03.9 TSH down significan tly with LevoxylGiv en that it takes 4-6 weeks for TSH to change in response to dose adjustment s, the full effect of the current dose may not yet be fully realized-c ontinue Levoxyl 100 mcg po daily-repe at TSH early July- /u when results are available Nayana Silvestre MD [facility] [address] [address] 07/15/2022 08:18:32 07/19/2022 10:57:35 Hemiplegia and/or hemiparesis following stroke 7956022653 9107 I69.351 PT/OT prnwill monitor and supportASA 81 mg dailyatorv astatin 40 mg daily Essential hypertension 39808364 I10 lisinopril 10 mg dailywill monitor Gout 13636593 M10.09 allopurino l 300 mg dailywill monitor Secondary hypothyroidism 66140039 E03.8 levothyrox ine 100 mcg dailywill monitor Obstructiv e sleep apnea syndrome 16593455 G47.33 CPAPwill monitor Mixed anxi ety and depressive disorder 614686041 F41.8 fluoxetine 20 mg dailywill monitor History of cerebrovascular accident 348739061 Z86.73 ASA 81 mg dailyatorv astatin 40 mg dailywill monitor History of deep vein thrombosis 790264045 Z86.718 apixaban 5 mg bidwill monitor [id number] ANGELINA CORONA PA-C [facility] [address] [address] 07/18/2022 12:55:47 08/08/2022 16:24:06 Acquired hypothyroidism 810015013 E03.9 TSH improvedRe peat TSH ~8 weeks [id number] ANGELINA CORONA PA-C [facility] [address] [address] 08/25/2022 12:38:24 09/13/2022 12:51:33 Weight loss 18197607 R63.4 weights have all been stabledoub t validity of initial weight-the refore, there has been no weight lossMonito r weightsRD also following Oropharyng eal dysphagia 59158377 R13.12 modified dietMBS pend Secondary hypothyroidism 01193575 E03.8 TSH scheduled for September [id number] ANGELINA CORONA PA-C [facility] [address] [address] 09/15/2022 15:36:12 09/20/2022 08:21:52 Acquired hypothyroidism 944449869 E03.9 TSH up from priorIncre ase Levoxyl from 100 mcg to 125 mcg po dailyTSH 6 weeks [id number] Nayana Silvestre MD [facility] [address] [address] 10/14/2022 08:10:04 10/19/2022 10:26:17 Asthenia 76196370 R53.1 PT/OT prnwill monitor and support as needed Essential hypertension 57071659 I10 lisinopril 10 mg dailywill monitor Hypothyroidism 29045364 E03.8 levothyrox ine 125 mcg dailywill monitor closely History of cerebrovascular accident 507089178 Z86.73 ASA 81 mg dailyatorv astatin 40 mg dailyPT/OT prnwill monitor History of deep vein thrombosis 135832714 Z86.718 apixaban 5 mg bidwill monitor Gout 14757248 M10.09 allopurino l 300 mg dailywill monitor [id number] ARACELI CANELA NP [facility] [address] 11/03/2022 15:53:18 11/11/2022 10:25:36 Hypothyroidism 00368054 E03.8 TSH level 16.66Curre ntly on levothyrox ine 125 mcg dailyPlan -Increase levothyrox ine to 137 mcg dailyTSH recheck 8 weeks 01/02/23mon itor [id number] JORI Bauer [facility] [address] 12/06/2022 08:55:30 12/08/2022 10:08:52 Essential hypertension 34555632 I10 bp normallisi nopril 10 mg qdmonitor bp and adjust dose prn Hypothyroidism 38681290 E03.8 levothyrox ine 137 mcg qdrepeat TSH on 01/02/23 History of cerebrovascular accident 492904936 Z86.73 ASA 81 mg qdatorvast atin 40 mg qhsfish oil 1000 mg qdsupporti ve carechol and trigs elevated in May 2022, LFTs normalrech baldemar LFTs and lipids on 12/07/22 History of deep vein thrombosis 169795132 Z86.718 apixaban 5 mg bidmonitor for bleeding Gout 30152000 M10.09 allopurino l 300 mg qdmonitor for gout flare [id number] [facility] [address] 02/15/2023 08:18:17 02/17/2023 11:29:10 Asthenia 54820179 R53.1 PT/OT prnwill monitor and support as needed Essential hypertension 92921520 I10 lisinopril 10 mg dailywill monitor Gout 76280179 M10.09 allopurino l 300 mg dailywill monitor Coronary arteriosclerosis 58828341 I25.10 atorvastat in 40 mg dailyASA 81 mg dailywill monitor Secondary hypothyroidism 39042515 E03.8 levothyrox ine 137 mcg dailywill monitor History of cerebrovascular accident 903375272 Z86.73 ASA 81 mg dailyatorv astatin 40 mg dailyPT/OT prnwill monitor [id number] Rafia Bowling NP [facility] [address] 02/27/2023 11:51:27 03/01/2023 06:55:27 Asthenia 90459584 R53.1 PT/OT prnwill monitor and support as needed Secondary hypothyroidism 06471810 E03.8 levothyrox ine 137 mcg dailytsh tomorrow to recheck level, was highwill monitor History of cerebrovascular accident 247039527 Z86.73 with aphasia at baselineAS A 81 mg dailyatorv astatin 40 mg dailyPT/OT prnwill monitor Fatigue 55620931 R53.83 co fatigue and having difficulty doing PTcovid neg as in facilitywi ll get cmp and cbc and tsh tommonitor Xerophthalmia 486347483 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.7 Continue artificial tears qidcontinu e eye lubicant pm ointment at qhs as ordered(nu rsing aware that he needs this and will reorder as he was out)Monito r Cough 15390214 R05.9 pt reports baseline cough and allergies (not new)start robitussin 10 mg po q 6 hours prnmonitor [id number] Rafia Bowling NP [address] [address] 03/01/2023 09:45:26 03/06/2023 09:17:24 Fatigue 14529616 R53.83 co fatigue and having difficulty doing PT, states improving [facility]covi d [facility] with refusals in pt educated on need to take medication and compliance with plan to recheck level in 6 weeksmonit or Asthenia 04251668 R53.1 PT/OT prnwill monitor and support as needed Secondary hypothyroidism 86431354 E03.8 levothyrox ine 137 mcg dailytsh tomorrow to recheck level, was [facility]02/28 tsh 31.14 with refusals in pt educated on need to take medication and compliance with plan to recheck level in 6 weeks -he states he is takingstaf f educated on importance of medication and needwill monitor History of cerebrovascular accident 981610428 Z86.73 with aphasia at baseline and right sided weaknessAS A 81 mg dailyatorv astatin 40 mg dailyPT/OT prnwill monitor [id number] ARACELI CANELA NP [address] [address] 04/11/2023 12:32:57 04/18/2023 13:14:19 Secondary hypothyroidism 08682723 E03.8 Currently on levothyrox ine 137 mcg daily02/28 TSH = 31.14 with (refusals in MAR)Review of MAR showing med compliance this monthRepea ting TSH in near futureMay consider dose adjustment if still high History of cerebrovascular accident 617031993 Z86.73 with aphasia at baseline and right sided weaknessCo ntinue:ASA 81 mg dailyapixa ban 5 mg bidatorvas tatin 40 mg dailydue for labs in May.PT/OT prnwill monitor Essential hypertension 67497825 I10 Continue lisinopril 10 mg dailymonit or VS, labs, adjust prn Gout 52281416 M10.09 continue allopurino l 300 mg dailysx. currently controlled . Coronary arteriosclerosis 34349002 I25.10 Continue:l isinopril 10 mg daily for BP controlato rvastatin 40 mg dailyfish oil dailyASA 81 mg dailyFollo w VS, CP status, labs Excessive cerumen in ear canal 514705257 H61.23 Debrox 4 gtts bid x 5 days, then flush.May repeat cycle if poor reslults.C onsult ENT if unable to remove wax. Dermal mycosis 36404730 B36.9 Groin area per [employer], requesting antifungal txWill add house stock antifungal cream bid x 30 daysMonito r [id number] Rafia Bowling NP [facility] [address] 06/01/2023 09:45:47 06/15/2023 08:55:45 Secondary hypothyroidism 37757873 E03.8 02/28 TSH = 31.14 with (refusals in MAR)04/18 TSH = 26.64 and increased dose to 750xsp28/1 8 TSH 17.67 Review of MAR showing med compliance this month06/01 increase dose to 175 mcg po dailyTSH in 8 weeksMay consider dose adjustment if still high in 8 weeksmonit or [id number] Nayana Silvestre MD [facility] [address] [address] 06/16/2023 12:58:01 06/19/2023 12:47:05 Hemiplegia and/or hemiparesis following stroke [id number] 9107 I69.351 PT/OT prnwill monitor and supportASA 81 mg dailyapixa ban 5 mg bidatorvas tatin 40 mg daily Essential hypertension 11903256 I10 lisinopril 10 mg dailywill monitor Coronary arteriosclerosis 60448481 I25.10 atorvastat in 40 mg dailyASA 81 mg dailywill monitor Gout 84901675 M10.09 allopurino l 300 mg dailywill monitor Hypothyroidism 68000316 E03.8 levothyrox ine 175 mcg dailywill continue to monitor closelyTSH next month [id number] ARACELI CANELA NP [facility] [address] 06/22/2023 11:34:49 06/27/2023 15:16:08 Secondary hypothyroidism 19510285 E03.8 05/29/23 TSH 17.67 Review of MAR showed med compliance this month06/01 Levothyrox ine increased to 175 mcg po daily Checking other labs, so will check TSH, FT3, FT4 as wellmonito r History of cerebrovascular accident 093367403 Z86.73 with aphasia at baseline and right sided weaknessCo ntinue:ASA 81 mg dailyapixa ban 5 mg bidatorvas tatin 40 mg dailyCheck CBC, CMP, lipid panel x 1PT/OT prnwill monitor Essential hypertension 42783104 I10 Continue lisinopril 10 mg dailymonit or VS, labs, adjust prn Gout 81454338 M10.09 continue allopurino l 300 mg dailysx. currently controlled . Coronary arteriosclerosis 94794905 I25.10 Continue:l isinopril 10 mg daily for BP controlato rvastatin 40 mg dailyfish oil dailyASA 81 mg dailyFollo w VS, CP status, labsCBC, CMP, lipid panel x 1 in am Chronic constipation 236 036391 K59.09 continue senna-smon itor bowels, adjust prn [id number] Rafia Bowling NP [facility] [address] 06/23/2023 16:46:45 06/27/2023 16:05:18 Secondary hypothyroidism 93866387 E03.8 05/29/23 TSH 17.67 Review of MAR showed med compliance this month06/01 Levothyrox ine increased to 175 mcg po daily TSH 6.48 improving on 6 weeks check but will increase to 200 mcg po dailyreche ck TSH in 8 weeks [id number] SHWETA FRAGA NP [facility] [address] 08/11/2023 09:37:26 08/15/2023 13:51:25 Secondary hypothyroidism 27919072 E03.8 05/29/23 TSH 17.67 Review of MAR showed med compliance this month06/01 Levothyrox ine increased to 175 mcg po daily TSH 6.48 improving on 6 weeks check but will increase to 200 mcg po dailyreche ck TSH in 8 weeks History of cerebrovascular accident 404120730 Z86.73 with aphasia at baseline and right sided weaknessCo ntinue:ASA 81 mg dailyapixa ban 5 mg bidatorvas tatin 40 mg dailyPT/OT prnwill monitor Essential hypertension 06037157 I10 Continue lisinopril 10 mg dailymonit or VS, labs, adjust prn Gout 79363841 M10.09 continue allopurino l 300 mg dailysx. currently controlled . Coronary arteriosclerosis 61343970 I25.10 Continue:l isinopril 10 mg daily for BP controlato rvastatin 40 mg dailyfish oil dailyASA 81 mg dailyFollo w VS, CP status, labs Chronic constipation 236 337879 K59.09 continue senna-smon itor bowels, adjust prn [id number] Rafia Bowling NP [facility] [address] 08/31/2023 08:13:53 09/05/2023 10:55:18 Gastroesophageal reflux disease without esophagitis 872353656 K21.9 No sxs on no meds. denies any refluxMoni tor CVA - cere brovascular accident due to cerebral artery occlusion 887478414 I63.312 contASA, Eliquis, statinPT/O T/SLPf/u prn Aphasia 04641286 R47.01 With mod. 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 Dysphagia 32247672 R13.1 0 dysphagia with swallowing and cough08/30 start speech to eval08/30 cxr to ro asp pna with report of coughing latelymoni tor Cough 50402152 R05.9 pt reports baseline cough and allergies (not new) but more frequentrobituss in 10 mg po q 6 hours prncxr to ro pna with cough latelyresp panel to ro viral illness as flu is in the facilitymo nitms [id number] Rafia Bowling NP [facility] [address] 09/06/2023 09:05:52 09/11/2023 09:29:48 Dysphagia 52898272 R13.10 dysphagia with swallowing and cough ? flu related08/11 1 start speech to eval-pendi ng evalconsid er if FEES test would be helpful when flu resolves, will reeval with flu resolution 08/30 cxr neg for pna or acute findingsmo nitor CVA - cere brovascular accident due to cerebral artery occlusion 278710730 I63.312 contASA, Eliquis, statinPT/O T/SLPf/u prn Aphasia 94456666 R47.01 With mod. 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 Influenza caused by Influenza A virus 396209009 J09.X2 pt reports baseline cough and allergies (not new) but more frequent now with increased sob today 09/05 startduone bs tid and q 4 hours x 4 days and prn wheezing/s ob x 21 dayspredni sone 40 mg po daily x 5daysconti ncrease fluids > 2liters/da y x 5 daystamifl u sched to complete on 09/08robitu ssin 10 mg po q 6 hours prncxr to ro pna with cough latelyfaci lity precaution s isolationm onitor [id number] ARACELI CANELA NP [facility] [address] [address] 09/07/2023 16:00:02 09/11/2023 11:34:25 Influenza caused by Influenza A virus 365616167 J09.X2 Tested pos. 08/31Now on tamiflu x 5 days Added on 09/05:duone bs tid and q 4 hours x 4 days and prn wheezing/s ob x 21 dayspredni sone 40 mg po daily x 5days Continue:f luids > 2liters/da y x 5 daysrobitu ssin 10 mg po q 6 hours prnAPAP prn CXR ordered, ? not done yet/pendin g - will re order Add:mucine x 600 mg bid x 7 days Continue to monitor closely Dysphagia 09938631 R13.1 0 dysphagia with swallowing and cough ? flu relatedMon itoring for nowCheckin g CXR - ordered 09/05referr ed to [facility] r if FEES test would be helpful when flu resolves, will reeval with flu resolution 08/30 cxr neg for pna or acute findingsmo nitor [id number] Rafia Bowling NP [facility] [address] [address] 09/20/2023 09:22:40 09/27/2023 15:15:31 Dysphagia 48715009 R13.10 dysphagia with swallowing and cough ? flu relatedMon itoring for nowCheckin g CXR - ordered 09/05referr ed to [facility] r if FEES test would be helpful when flu resolves, will reeval with flu resolution 08/30 cxr neg for pna or acute findings seen by speech rec reg text diet, thin liquidsmon itor [id number] Rafia Bowling NP [facility] [address] [address] 11/15/2023 12:48:14 11/20/2023 19:42:11 Hearing loss 95792143 H91.90 pt states right hearing worse than leftneed to speak up or yell and repeat as neededaudi ology referral [id number] Rafia Bowling NP [facility] [address] [address] 11/20/2023 13:05:04 11/24/2023 11:27:01 Suspected respiratory disease 727508310 Z20.828 Pt with suspected upper resp illness with nasal congestion and mild temp 99.4, and nausea with decreased po6/10 startcbc and bmp and bnpresp panelzofra n 4 mgpo q 6hours prn nauseaenco urage po fluids x 2 days >2 liters/day urinalysis with c & s to rule out infectionm ay need IV fluids if cannot start drinking and eating morept states he will try zofran, toast, and water this amrobituss in prn coughtyl prn temp [id number] Chris Correa MD [address] [address] 11/22/2023 10:30:34 11/24/2023 12:07:15 Secondary hypothyroidism 36007017 E03.8 synthroid 200 mcg qdprior dose adjustment repeat tsh History of cerebrovascular accident 549434798 Z86.73 eliquis 5 mg bidlipitor 40 mg qdcontinue supportive care Essential hypertension 72657947 I10 lisinopril 10 mg qdmonitor bp and need to titraterep eat labs ordered COVID-19 945273833 U07.1 testing positive for covidput precaution s in placestart paxlovid bid x 5 days [id number] Rafia Bowling NP [address] [address] 11/23/2023 09:27:07 11/28/2023 10:09:52 History of cerebrovascular accident 623176852 Z86.73 eliquis 5 mg bidlipitor 40 mg qdcontinue supportive care COVID-19 161875466 U07.1 testing positive for covid on 11/21isolat ion precaution s in place11/22 dc paxlovid bid x 5 days as he refuses itmonitor for s/s of illness and distress [id number] Rafia Bowling NP [address] [address] 11/24/2023 12:17:18 11/28/2023 10:39:06 COVID-19 625571318 U07.1 testing positive for covid on 11/21 with symptoms of mild fever, cough, and nasal congestion now resolvedis olation precaution s in place11/22 dc paxlovid bid x 5 days as he refuses it11/23 feeling better no changesmon itor for s/s of illness and distress History of cerebrovascular accident 542331855 Z86.73 conteliqui s 5 mg bidlipitor 40 mg qdcontinue supportive care [id number] Rafia Bowling NP [address] [address] 11/27/2023 15:44:04 11/30/2023 09:38:32 COVID-19 525502509 U07.1 resolvedte sting positive for covid on 11/21 with symptoms of mild fever, cough, and nasal congestion now resolvedis olation precaution s in place11/22 dc paxlovid bid x 5 days as he refuses it11/23 feeling better no changes resolvedmo nitor for s/s of illness and distress History of cerebrovascular accident 909827179 Z86.73 conteliqui s 5 mg bidlipitor 40 mg qdcontinue supportive care Acute cystitis 48540191 N30.01 with UTI on culture shows staph hominiscou ld be contaminan t, however with culture and occ dysuria and fever last week and multi resistant will treat11/26 start linezolid 600 mg po bid x 10 days11/26 start probiotic 1 tab po bid x 10daysmoni tor [id number] Rafia Bowling NP [address] [address] 12/08/2023 12:50:51 12/12/2023 11:28:20 Impacted cerumen of bilateral ears 9862346823 600858 H61.23 12/07 startdebro x 4 gtts to both ears tid x 5 days, flush day 6, repeat x 1monitor for need further eval and meds Acute cystitis N30.01 resolved, no more tempswith UTI on culture shows staph hominiscou ld be contaminan t, however with culture and occ dysuria and fever last week and multi resistant will treat11/26 start linezolid 600 mg po bid x 10 days-6/17 start probiotic 1 tab po bid x 10dayscomp letd today on 12/07monito r COVID-19 891950929 U07.1 resolvedte sting positive for covid on 11/21 with symptoms of mild fever, cough, and nasal congestion now resolvedis olation precaution s in place11/22 dc paxlovid bid x 5 days as he refuses it11/23 feeling better no changes resolved resolvedmo nitor for s/s of illness and distress History of cerebrovascular accident 133925579 Z86.73 conteliqui s 5 mg bidlipitor 40 mg qdcontinue supportive care [id number] Rafia Bowling NP [facility] [address] [address] 12/18/2023 08:11:19 12/21/2023 14:39:34 History of cerebrovascular accident 430830282 Z86.73 conteliqui s 5 mg bidlipitor 40 mg qdcontinue supportive care Cough after eating 36598 001 R05.9 cough with eating per pt and staff x 1 wk and ? choking episodewit hout cough or diff breathing today, will rule out asp pna/swallo w impairment /post covid pnaof note: recently on abx for UTI and had covid12/17 artswallow evalcbc with diff, bmpcxr 2 view ro asp pnahas prn robitussin on order albuterol inhaler prnmonitor closely and [id number] Rafia Bowling NP [facility] [address] [address] 12/28/2023 08:31:13 01/02/2024 14:56:59 Cough after eating 26196081 R05.9 on 12/17 cough with eating per pt and staff x 1 wk and ? choking episodewit hout cough or diff breathing today, will rule out asp pna/swallo w impairment /post covid pnaof note: recently on abx for UTI and had covid7/8st artswallow eval done on 12/25 showing no change to diet and cont regular, thin diet. No aspiration noted. cbc with diff, bmp on 12/17 wnlcxr 2 view ro asp pna, no pna 12/17 nadhas prn robitussin on marwill order albuterol inhaler prnmonitor closely and 12/27 resolved with labs, cxr and speech eval wnl monitor History of cerebrovascular accident 145875871 Z86.73 conteliqui s 5 mg bidlipitor 40 mg qdcontinue supportive care Intertrigo 66620571 L30. 4 has 5 inch moist round rash to r axilla12/27 separate axilla skin on skin area with interdry, cotton cloth, abd, or johonny daily until resolved wash area, pat dry thoroughly , and nystatin powder bidmonitor [id number] Rafia Bowling NP [facility] [address] 12/29/2023 12:34:01 01/02/2024 15:14:56 History of cerebrovascular accident 085213035 Z86.73 conteliqui s 5 mg bidlipitor 40 mg qdcontinue supportive care Ingrowing nail of toe of right foot 0111217265 0425996 L60.0 He has a slight amount of sangenous dried bld to the left of the toe nail cuticle. no overt infection noted but potential for infection high12/28 start betadine paint bid x 10daysmoni tor closely for swelling, redness, drainage or s/s of infection [id number] Rafia Bowling NP [facility] [address] 01/11/2024 12:38:20 01/12/2024 15:22:29 Ingrowing nail of toe of right foot 0204529657 4801834 L60.0 He has a slight amount of sangenous dried bld to the left of the toe nail cuticle. no overt infection noted but potential for infection high12/28 start betadine paint bid x 10daysmoni tor closely for swelling, redness, drainage or s/s of infection area resolving History of cerebrovascular accident 991803341 Z86.73 conteliqui s 5 mg bidlipitor 40 mg qdcontinue supportive care Cough after eating 88387 001 R05.9 12/27 resolved with labs, cxr and speech eval wnlmonitor Intertrigo 28286734 L30. 4 resolved wash area, pat dry thoroughly , and nystatin powder bidmonitor Impacted c erumen of bilateral ears 8936181833 029644 H61.23 12/07 debrox 4 gtts to both ears tid x 5 days, flush day 6, repeat x 1 without results 01/10 start bcwiso909s g/10 ml 4 ggts to bilaterall y ears tid x 14 days and flush day 15monitor for need further eval and meds Acute cystitis 72653694 N30.01 resolved, no more tempswith UTI on culture shows staph hominiscou ld be contaminan t, however with culture and occ dysuria and fever last week and multi resistant will treat11/26 start linezolid 600 mg po bid x 10 days-11/26 start probiotic 1 tab po bid x 10dayscomp letd today on 12/07now asymptomat icmonitor COVID-19 048734893 U07.1 resolvedte sting positive for covid on 11/21 with symptoms of mild fever, cough, and nasal congestion now resolvedis olation precaution s in place11/22 dc paxlovid bid x 5 days as he refuses it11/23 feeling better no changes resolved resolvedmo nitor for s/s of illness and distress Essential hypertension 46075266 I10 stablelisi nopril 10 mg qdmonitor bp and need to titraterep eat labs ordered Secondary hypothyroidism 58640930 E03.8 stablesynt hroid 200 mcg qdprior dose adjustment repeat tsh prn [id number] Rafia Bowling NP [address] [address] 03/22/2024 08:37:01 03/27/2024 11:52:00 Ingrowing nail of toe of right foot 7701521936 8352264 L60.0 resolved, no s/s of infection todaymonit or closely for swelling, redness, drainage or s/s of infectionp odiatry consult for toenail clipping pending History of cerebrovascular accident 379570789 Z86.73 conteliqui s 5 mg bidlipitor 40 mg qdcontinue supportive care Intertrigo 04460306 L30. 4 almost resolvedco ntwash area, pat dry thoroughly , and nystatin powder bidseparat e skin folds to right axilla with cotton, abd pad, or johonny if ablemonito r Essential hypertension 77274487 I10 stablelisi nopril 10 mg qdmonitor bp and need to titrate, tight control not needed in elderly man, <150 systolic bp goal Secondary hypothyroidism 05249469 E03.8 stablesynt hroid 200 mcg qdprior dose adjustment repeat tsh prn Gastroesop hageal reflux disease without esophagitis 063510661 K21.9 No sxs on no meds. denies any refluxMoni tor Depressive disorder 3548 9007 F33.1 Was seen by psychiatric cns on 01/25 without med changesno longer on paxil, mood goodContin ueMonitor moodConsid er psych consult Cirrhosis of liver 007 K74.69 Likely VARGAS as pt denies EtOHAvoid hepatotoxi c meds as able [id number] Rafia Bowling NP [facility] [address] 04/04/2024 14:04:01 04/08/2024 11:09:04 Intertrigo 21782571 L30.4 almost resolvedco ntwash area, pat dry thoroughly , and nystatin powder bidseparat e skin folds to right axilla with cotton, abd pad, or johonny if ablemonito r History of cerebrovascular accident 154143429 Z86.73 conteliqui s 5 mg bidlipitor 40 mg qdcontinue supportive care Fitting of denture 6119030 85620 Z46.3 pt reports ill fitting denture today and requests new ones as these are big and 15 years old-consul t [facility] e for denture fittingmay use fixodent until dentures are fitted properly by [facility] monitor Conjunctivitis 1255651 H 10.9 pt with increased redness dryness and itching of bilateral eyes for a few days L>Rwill treat: erythromyc in opth oint 0.5% tid x 7 daysmosit compress to left eye tid for 15 minutes to left eye x2 daysmonito r [id number] Rafia Bowling NP [facility] [address] 05/01/2024 14:18:12 05/02/2024 09:13:07 Dermal mycosis 52925789 B36.9 right neck fold fungal rash05/01 start nystatin powder bid and prn until healedkeep area clean and drymonitor Denture lost 716104652 K 08.59 ill fitting denture to upper palatedent al consult placed 04/04 and prior visithe is aware nsg schedules this and he is on the list to be seen by [facility] [id number] [facility] [address] 05/23/2024 09:00:02 05/24/2024 14:30:24 Dermal mycosis 32726193 B36.9 resolved with antifungal keep area clean and drymonitor Denture lost 878790691 K 08.59 ill fitting denture to upper palatedent al consult placed 04/04 and prior visithe is aware nsg schedules this and he is on the list to be seen by healthdriv e dentalcont to monitor for new denture Conjunctivitis 9102265 H 10.9 pt with increased redness to left eye returned after treatment with erythromyc in05/23 start maxitrol suspension opth 2 gtts left eye x 7 daysmonito ropthamolo gy consult prn Fitting of denture 99821 89151 Z46.3 pt reports ill fitting denture today and requests new ones as these are big and 15 years old-consul t [facility]driv e for denture fittingmay use fixodent until dentures are fitted properly by healhdrive monitor Intertrigo 61856453 L30. 4 resolvedco ntwash area, pat dry thoroughly , and nystatin powder bidseparat e skin folds to right axilla with cotton, abd pad, or johonny if ablelikely will require antifungal powder consistent lymonitor History of cerebrovascular accident 412043690 Z86.73 conteliqui s 5 mg bidlipitor 40 mg qdcontinue supportive care Essential hypertension 63535237 I10 stablelisi nopril 10 mg qdmonitor bp and need to titrate, tight control not needed in elderly man, <150 systolic bp goal Secondary hypothyroidism 85660248 E03.8 stablesynt hroid 200 mcg qdprior dose adjustment repeat tsh prn Gastroesop hageal reflux disease without esophagitis 625649212 K21.9 No sxs on no meds. denies any refluxMoni tor Depressive disorder 3548 9007 F33.1 no longer on paxil, mood goodContin ueMonitor moodConsid er psych consult Cirrhosis of liver 70898 007 K74.69 Likely VARGAS as pt denies EtOHAvoid hepatotoxi c meds as able Impacted c erumen of bilateral ears 7182017414 669265 H61.23 05/23 debrox 4 gtts to both ears tid x 6 days, flush day 7, repeat course 2 more times. has not been able to get colace when ordered in the pastmonito r for need further eval and meds Chronic pain 63933858 G8 9.29 05/23repor ts neck pain to left and back of neck todaydiclo fenac gel 1% 2grams to left and posterior neck bidmonitor [id number] Rafia Bowling NP [address] [address] 07/01/2024 15:58:32 07/03/2024 10:54:04 Chronic pain 84227574 G89.29 neck paindiclof enac gel 1% 2grams to left and posterior neck bidmonitor Denture lost 178683348 K 08.59 ill fitting denture to upper palatedent al consult pendinghe is aware [facility] schedules this and he is on the list to be seen by healthdriv e dentalcont to monitor for new denture History of cerebrovascular accident 099900553 Z86.73 conteliqui s 5 mg bidlipitor 40 mg qdcontinue supportive care Essential hypertension 48031717 I10 stablelisi nopril 10 mg qdmonitor bp and need to titrate, tight control not needed in elderly man, <150 systolic bp goal Secondary hypothyroidism 23685628 E03.8 stablesynt hroid 200 mcg qdprior dose adjustment repeat tsh prn Gastroesop hageal reflux disease without esophagitis 618931775 K21.9 No sxs on no meds. denies any refluxMoni tor Depressive disorder 3548 9007 F33.1 no longer on paxil, mood goodContin ueMonitor moodConsid er psych consult Cirrhosis of liver 007 K74.69 Likely VARGAS as pt denies EtOHAvoid hepatotoxi c meds as able [id number] Rafia Bowling NP [address] [address] 07/03/2024 08:19:40 07/03/2024 08:41:09 Chronic pain 80250864 G89.29 neck paindiclof enac gel 1% 2grams to left and posterior neck bidmonitor at [facility] Denture lost 981810671 K 08.59 ill fitting denture to upper palatedent al consult pendingadh esive denture cream to helphe is aware [facility] schedules this and he is on the list to be seen by healthdriv e dentalcont to monitor History of cerebrovascular accident 221300986 Z86.73 conteliqui s 5 mg bidlipitor 40 mg qdcontinue supportive care at [facility] Essential hypertension 13240887 I10 stable 126/82 todaylisin opril 10 mg qdmonitor bp and need to titrate, tight control not needed in elderly man, <150 systolic bp goalmonito r at [facility] Secondary hypothyroidism 60825158 E03.8 stablesynt hroid 200 mcg qdrepeat tsh prn at [facility] facility he is due for level in July Gastroesop hageal reflux disease without esophagitis 423041441 K21.9 No sxs on no meds. denies any refluxMoni tor at [facility] Depressive disorder 3548 9007 F33.1 no longer on paxil, mood good hereMonito r moodConsid er psych consult as needed at [facility] facility Cirrhosis of liver 007 K74.69 Likely VARGAS as pt denies EtOHAvoid hepatotoxi c med[facility]itting [facility]ure 77505 58533 Z46.3 ill fitting denture to upper palate, he reports it is too loosedenta l consultadh esive denture cream to help with denture in the meantimemo nitor outpt at [facility] Intertrigo 15019141 L30. 4 resolve to right axillacont wash area, pat dry thoroughly , and nystatin powder bidseparat e skin folds to right axilla with cotton, abd pad, or johonny if ablelikely will require antifungal powder consistent lymonitor at new facility Health Concerns Section Related Observation LastModified by Organization Detai ls LastModified Time None Recorded Concern Status LastModified by Organization Details LastModified Time None Recorded Advance Directives Directive Y: revised 09/16/22: DNR/DNI ; ok for short-term NIV; ok for txr to hospital; no dialysis; no artificial nutrition; no artificial hydration Payers Encounter Date Sequence Insurance Name Policy Number Policy Hernandez Covered Member ID Hernandez Member ID Guarantor Name 04/04/2024 1 MEDICARE B-[place]: [facility] Thang Torre Martir [id number] Thang Martir 04/04/2024 2 [place] [facility] Thang Martir [id number] Thang Martir 05/01/2024 1 MED[place]ARE B-[place]: [facility] Thang Torre Martir [id number] Thang Martir 05/01/2024 2 [place] [facility] Thang Martir [id number] Thang Martir 05/23/2024 1 MED[place]ARE B-[place]: [facility] Thang Torre Martir [id number] Thang Martir 05/23/2024 2 [place] [facility] Thang Martir [id number] Thang Martir 07/01/2024 1 MED[place]ARE B[place]: [facility] Thang Torre Martir [id number] Thang Martir 07/01/2024 2 [place]: [facility] Thang Martir [id number] Thang Martir 07/03/2024 1 MEDICARE B-[place]: [facility] Thang Torre Martir [id number] Thang Martir 07/03/2024 2 [place] [facility] Thang Martir [id number] Thang Mcmahan Notes Date Note Type Note Provider Name and Address Organization Details Recorded Time 04/04/2024 text/html Thang is a 73 y o male LTC resident seen for an acute rounding visit. PMH significant for prior CVA Patient is seen for red eyes today per nursing. On exam, pt is sitting up in bed in NAD. He has some dysarthria at baseline. pt reports left eye redness for 3 days with itching and dryness. Left eye notably injected on exam. right eye mildly pink. No obvious crusting, discharge, or changes in vision noted. He denies any trauma or getting anything into his eye. He is covid negative today. He also notes his dentures are too big and takes them out and requests new ones as theses are over 15 years old. His right axilla rash which has improved with nystatin is healing, approx 75% resolved. He has decreased mobility to this arm due to stroke which creates a skin on skin moisture. Mostly resolved with nystatin. PMH significant for prior CVA Rafia Bowling NP [address], [address], [place], [address], [facility] [place] [facility] 04/04/2024 14:28:48 05/01/2024 text/html Pt is a 73 yo [facility] resident seen for an acute rounding visit. PMH significant for prior CVA He is seen for a red micropapular moist rash to right neck fold. Appears likely fungal. Noticed by nursing today. On exam, pt is sitting up in bed in NAD. He has some dysarthria at baseline. Pt states he can't see or feel rash. He also notes his dentures are big and requests new ones. He has no dentures to his upper palate. PMH significant for prior CVA Rafia Bowling NP [address], [address], [place], [address], [facility] [place] [facility] 05/01/2024 18:40:35 05/23/2024 text/html Pt is a 73 yo [facility] resident seen for a routine rounding visit. PMH significant for prior CVA On 04/04 pt was treated for conjunctivitis with resolution, however now reoccurring to left eye today on 05/23 without visual changes. On 05/01 pt is seen for a red micropapular moist rash to right neck fold resolved with antifungal. On exam, pt is sitting up in bed in NAD. He has some dysarthria at baseline. He states he has blocked ears again and neck pain to the left and back areas and would like something for pain. He also mentions he left eye is red again. Overall stable with above concerns. Weight stable at 242 lbs and was 245lbs last month. will monitor. Rafia Bowling NP [address], [address], [place], [address], [facility] 05/23/2024 13:24:08 07/01/2024 text/html Pt is a 74 yo [facility] resident seen for an annual visit. Medical history is remarkable for history of CVA 2021 with residual aphasia, dysphagia, right hemiparesis, SAMARIA on CPAP, VARGAS, CAD s/p NSTEMI, PVD, history AAA s/p endovascular repair, s/p left TKA, GERD, chronic pain, hypothyroidism, history acute gangrenous cholecystitis Mar 2022 s/p partial cholecystectomy, ERCP with sphincterotomy and stent for biliary leak Pt tested positive for covid on 11/22/23 with URI symptoms and refused paxlovid with mild course. His right axilla rash which has improved with nystatin is healing. He has decreased mobility to this arm due to stroke which creates a skin on skin moisture. Resolved with nystatin. On 04/04 pt was treated for conjunctivitis with resolution, however now reoccurring to left eye today on 05/23 without visual changes. On 05/01 pt is seen for a red micropapular moist rash to right neck fold resolved with antifungal. On exam, pt is sitting up in bed in [facility]. He remains with some dysarthria at baseline. [facility]. Overall stable with above concerns. Weight stable at 246 lbs and was 247lbs last year. MOLST: full code - signed 10/13/21; HCP invoked 05/26/22 Rafia Bowling, [employer] [address], [address], [place], [address], [facility] 07/01/2024 17:44:32 07/03/2024 text/html Pt is a 74 yo [facility] resident seen for a [facility] 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 Since here at [facility] he has been doing well and remains with aphagia and right sided weakness since CV2021 and dependent on ADLs and remains a eric lift. He is seen in his room in [facility] and looking forward to the transition. He occasionally gets fungal rash to right axilla and remains on nystatin powder,however clear with maintenance powder. His TSH is followed and therapeutic since adjustment last year. He was originally transferred form [facility] in 10/2021 after an acute hospitalization for a left MCA stroke. He was transitioned from [facility] to LTC due to needs too great to be managed in the community. of note: He was sent back to ED on 04/08/22 from [facility] due to hypotension, weakness and malaise. He was found to have acute gangrenous cholecystitis and is now s/p partial cholecystectomy and txed with abxs. He also needed an ERCP with sphincterotomy and stent placement on 04/19 due to biliary leak. He returned to [facility] on 04/21. He had a RHONA drain in place until 04/27. He reportedly was back to baseline since then. He continues with aphasia and right sided weakness. Family requested transfer here for LTC. He was transferred here on 05/20. MOLST: full code - signed 10/13/21; HCP invoked 05/26/22 Rafia Bowling NP [address], [address], [place], [address], [facility] [place] [facility] 07/03/2024 08:41:07
--- OUTSIDE RECORDS SUMMARY | 2024-07-04 06:29 | XMS_ITS | Continuity of Care Document ---
Author Organization [facility], [facility] Address [address] [place] [address] Care Team Providers Care Front Office Secretary Name Role Phone ELIANA PALOMO Primary Care Provider [facility] OTHER Assessment No [...] Details Recorded Time Acute gangrenous cholecystit is 50738026 Active 2021 ANGELINA CORONA PA-C [address] , [address], [place], [address], [facility] 2 21:43:45 Cirrhosis of liver 54886553 Active 2021 ?VARGAS ANGELINA CORONA PA-C [address], [place], [address], [facility] 2 21:43:59 Insomnia co-occurren t and due to medical condition 8512386680619 5 Active 2021 ANGELINA CORONA PA-C [address], [address], [place], [address], [facility] 2 21:44:26 Essential hypertensio n 44401047 Active 2021 ANGELINA CORONA PA-C [address] , [address], [place], [address], [facility] 2 21:44:32 Depressive disorder 60659897 Active 2021 ANURADHA MATHEW-C [address], [address], [place], [address], [facility] 2 21:44:41 Dyslipidemi a 424313575 Active 2021 ANURADHA MATHEW-C [address], [address], [place], [address], [facility] 2 21:44:49 Chronic constipatio n 299809715 Active 2021 ANURADHA MATHEW-C [address], [address], [place], [address], [facility] 2 21:45:08 Hypophospha temia 6649949 Active 2021 ANURADHA MATHEW-C [address], [address], [place], [address], [facility] 2 21:45:19 Secondary hypothyroid ism 80491347 Active 2021 ANURADHA MATHEW-C [address], [address], [place], [address], [facility] 2 21:45:33 Peripheral vascular disease 789311892 Active 2021 ANURADHA MATHEW-C [address], [address], [place], [address], [facility] 2 21:46:01 Obstructive sleep apnea syndrome 74040599 Active 2021 ANURADHA MATHEW-C [address], [address], [place], [address], [facility] 2 21:46:14 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 049131959 Active 2021 RLE ANURADHA MATHEW-C [address], [address], [place], [address], [facility] 2 21:46:42 CVA - cerebrovasc ular accident due to cerebral artery occlusion 040940891 Active 2021 ANURADHA MATHEW-C [address], [address], [place], [address], [place] [facility] 2 21:46:59 Oropharynge al dysphagia 84455747 Active 2021 ANGELINAANURADHA BECKER-C [address], [address], [place], [address], [place] [facility] 2 21:47:15 Retention of urine 139370777 Active 2021 ANURADHA MATHEW-C [address], [address], [place], [address], [place] [facility] 2 21:47:27 Coronary arterioscle rosis 40467478 Active 2021 ANURADHA MTAHEW-C [address], [address], [place], [address], [facility] 2 21:47:35 Gout 06238776 Active 2021 ANURADHA MATHEW-C [address], [address], [place], [address], [facility] 2 21:47:42 Hypomagnese mary 073241963 Active 2021 ANURADHA MATHEW-C [address], [address], [place], [address], [facility] 2 21:47:53 Hypokalemia 29376123 Active 2021 ANURADHA MATHEW-C [address], [address], [place], [address], [facility] 2 21:48:01 Mild protein-renetta orie malnutritio n (weight for age 75-89 percent of standard) 827381823 Active 2021 ANURADHA MATHEW-C [address], [address], [place], [address], [facility] 2 21:48:37 Xerophthalm ia 421236719 Active 2021 ANURADHA MATHEW-C [address], [address], [place], [address], [facility] 2 21:48:48 Gastroesoph ageal reflux disease without esophagitis 280979236 Active 2021 ANGELINA CORONA PA-C [address], [address], [place], [address], [facility] 2 21:49:02 Chronic low back pain 545970131 Active 2021 ANGELINA CORONA PA-C [address], [address], [place], [address], [facility] 2 21:49:16 Weight loss 12948639 Active 2021 ANGELINA CORONA PA-C [address], [address], [place], [address], [facility] 2 21:49:27 Right hemiparesis 654335968 Active 2021 Marielle Monroe MD [address], [address], [place], [address], [facility] 2 20:52:36 Aphasia 18300356 Active 2021 Marielle Monroe MD [address], [address], [place], [address], [facility] 2 20:53:28 Dysphagia 98174436 Active 2023 Rafia Bowling NP [address], [address], [place], [address], [facility] 4 11:59:05 Problem Notes None recorded. Medical Equipment None Reported. Allergies No known drug allergies Medications Not known to be on any medication Vitals Date Recorded Body height Heart rate Respiratory rate Body temperature Oxygen saturation Oxygen saturation in Arterial blood by Pulse oximetry Systolic blood pressure Diastolic blood pressure Provider Name and Address Organization Details Last Updated DateTime 5 175.26 cm 78 /min 18 /min 98.6 [degF] 95 % 95 % 126 mm[Hg] 82 mm[Hg] Rafia Bowling NP [address], [address], [place], [address], [facility] 5 17:36:06 Social History Question Answer Notes LastModified by Organizat ion Details LastModified Time Tobacco Smoking Status Former Smoker ANGELINA CORONA PA-C [address] [facility] [address] [facility], [address], [place], [address], [facility] 05/23/2022 21:27:09 Do You Have An Advance Directive? Yes Revised 09/16/22: DNR/DNI; Ok For Short-term NIV; Ok For Txr To Hospital; No Dialysis; No Artificial Nutrition; No Artificial Hydration Information not available 09/16/2022 What Is Your Level Of Alcohol Consumption? None [email or web address] Information not available 05/23/2022 What Is Your Code Status? Full Code [email or web address] Information not available 05/23/2022 Where Do You Live? [facility] Information not available 05/26/2022 Legal Guardian? No [email or web address] Informati on not available 05/23/2022 Do You Have A Medical Power Of Supervisor Coating? Yes Valid Copy Uploaded In PCC, Not Invoked [email or web address] Information not available 05/23/2022 What Was The Date Of Your Most Recent Tobacco Screening? 05/23/2022 [email or web address] Information not available 05/23/2022 Do You Have An Out Of Hospital DNR? No [email or web address] Information not available 05/23/2022 Do You Use Any Illicit Or Recreational Drugs? No [email or web address] Information not available 05/23/2022 Has Tobacco Cessation Counseling Been Provided? No N/A As Pt No Longer Smokes [email or web address] Information not available 05/26/2022 Do You Or Have You Ever Used Any Other Forms Of Tobacco Or Nicotine? No [email or web address] Information not available 05/23/2022 Sex: Unknown Functional Status None recorded. Mental Status None recorded. Family History Nothing Reported Notes:n/c Medical History No medical history recorded. Immunizations Vaccine Type Date Status Note Provider Nam e and Address Organization Details Recorded Time pneumococcal polysaccharide PPV23 5 completed ANGELINA CORONA PA-C [address], [address], [place], [address], [facility] 05/23/2022 21:39:38 Pneumococcal conjugate PCV 13 6 completed ANGELINA CORONA PA-C [address], [address], [place], [address], [facility] 05/23/2022 21:39:52 COVID-19 vaccine, vector-nr, rS-Ad26, PF, 0.5 mL 2 completed ANGELINA CORONA PA-C [address], [address], [place], [address], [facility] 05/23/2022 21:42:19 COVID-19 vaccine, vector-nr, rS-Ad26, PF, 0.5 mL 1 completed ANGELINA CORONA PA-C [address], [address], [place], [address], [facility] 05/23/2022 21:42:26 Past Encounters Encounter ID Performer Location Encounter Start Date Encounter Closed Date Diagnosis/Indication Diagnosis SNOMED-CT Code Diagnosis ICD10 Code Diagnosis Note [id number] Rafia Bowling NP [address] [address] 07/01/2024 15:58:32 07/03/2024 10:54:04 Chronic pain 59216651 G89.29 neck paindiclof enac gel 1% 2grams to left and posterior neck bidmonitor Denture lost 901137448 K 08.59 ill fitting denture to upper palatedent al consult pendinghe is aware [facility] schedules this and he is on the list to be seen by [facility] to monitor for new denture History of cerebrovascular accident 236630878 Z86.73 conteliqui s 5 mg bidlipitor 40 mg qdcontinue supportive care Essential hypertension 15412578 I10 stablelisi nopril 10 mg qdmonitor bp and need to titrate, tight control not needed in elderly man, <150 systolic bp goal Secondary hypothyroidism 60175973 E03.8 stablesynt hroid 200 mcg qdprior dose adjustment repeat tsh prn Gastroesop hageal reflux disease without esophagitis 060752136 K21.9 No sxs on no meds. denies any refluxMoni tor Depressive disorder 3548 9007 F33.1 no longer on paxil, mood goodContin ueMonitor moodConsid er psych consult Cirrhosis of liver 007 K74.69 Likely VARGAS as pt denies EtOHAvoid hepatotoxi c meds as able Health Concerns Section Related Observation LastModified by Organization Detai ls LastModified Time None Recorded Concern Status LastModified by Organization Details LastModified Time None Recorded Payers Encounter Date Sequence Insurance Name Policy Number Policy Hernandez Covered Member ID Hernandez Member ID Guarantor Name 07/01/2024 1 [place] [employer] Thang Mcmahan [id number] Thang Ramosue 07/01/2024 2 [place] [facility] Thang Mcmahan [id number] Thang Mcmahan Notes Date Note Type Note Provider Name and Address Organization Details Recorded Time 07/01/2024 text/html Pt is a 74 yo ma [facility] resident seen for an annual visit. Medical [...] pt is sitting up in bed in [facility]. He remains with some dysarthria at baseline. [facility]. Overall stable with above concerns. Weight stable at 246 lbs and was 247lbs last year. MOLST: full code - signed 10/13/21; HCP invoked 05/26/22 Rafia Bowling NP [address], [address], [place], [address], [facility] 07/01/2024 17:44:32
[2024-07-04 07:02] LABS: Basophils Percent Auto 0.3 % (0-2); Eosinophils Absolute Auto 0.2 X10*3/uL (0.0-0.4); Eosinophils Percent Auto 2.6 % (0-4); Hemoglobin 15.4 g/dl (14.0-18.0); Imm Gran Abs Auto 0.02 X10*3/uL (0.00-0.03); Imm Gran Pct Auto 0.2 % (0.0-0.4); Lymphocytes Absolute Auto 2.8 X10*3/uL (1.2-4.9); Lymphocytes Percent Auto 31.2 % (20-40); Mean Corpuscular HGB Conc 32.8 g/dl (31.0-36.0); Mean Corpuscular Hemoglobin 28.9 pg (27.0-33.0); Mean Corpuscular Volume 88.3 fL (80.0-98.0); Mean Platelet Volume 11.1 fL (9.4-12.4); Monocytes Absolute Auto 0.7 X10*3/uL (0.1-1.2); Monocytes Percent Auto 7.3 % (2-11); Neutrophils Absolute Auto 5.2 x10*3/uL (2.0-8.3); Neutrophils Percent Auto 58.4 % (45-73); Platelet Count 122 X10*3/uL (160-400); Red Blood Count 5.32 X10*6/uL (4.60-5.80); White Blood Count 8.9 X10*3/uL (4.8-10.8)
[2024-07-04 07:05] LABS: Alanine Aminotransferase 18 U/L (0-40); Albumin Level 3.5 g/dL (3.5-5.0); Alkaline Phosphatase 71 U/L (39-117); Anion Gap 13 (12-20); Aspartate Amino Transferase 25 U/L (5-37); Bilirubin Total 0.7 mg/dL (0.0-1.0); Blood Urea Nitrogen 10 mg/dL (9-16); Calcium 9.8 mg/dL (8.4-10.2); Carbon Dioxide 23 mmol/L (22-29); Chloride 108 mmol/L (96-108); Cholesterol 108 mg/dL (<200); Estimated Glomerular Filt Rate > 60; Glucose Fasting 105 mg/dL (60-99); HDL Cholesterol 26 mg/dL (>40); Iron 49 mcg/dL (45-160); LDL Cholesterol Calculated 56 mg/dL (<100); Percent Iron Saturation 20 % (15-50); Potassium 4.3 mmol/L (3.3-5.1); Sodium 140 mmol/L (135-145); Total Iron Binding Capacity 245 mcg/dL (228-428); Total Protein 6.9 g/dL (6.5-8.0); Triglycerides 134 mg/dL (<150); Unsaturated Iron Binding 196 ug/dL
[2024-07-04 07:06] LABS: B Type Natriuretic Peptide 18 pg/mL (<100)
[2024-07-04 07:19] LABS: Ferritin 345 ng/mL (20-250); Thyroid Stimulating Hormone 0.06 uIU/mL (0.32-4.0)
[2024-07-04 07:34] LABS: Folate 7.5 ng/mL (> or = 4.0); Vitamin B12 371 pg/mL (200-900)
[2024-07-07 21:39] LABS: TS Negative Control Passed; TS Panel A 0; TS Panel B 0; TS Positive Control Passed; TSpotTB Negative (Negative)
== END 2024-07-04 06:24 | disposition home or self-care (01) ==
LOC: HO.HSH2W 06:23
PROVIDERS: Visit Provider Internal Medicine
DX: D64.9 Anemia, unspecified (principal); I50.9 Heart failure, unspecified; Z11.1 Encounter for screening for respiratory tuberculosis
CPT/HCPCS: 36415; 80053; 80061; 82607; 82728; 82746; 83540; 83880; 84443; 85025; 86481

== ENCOUNTER 2024-08-15 08:52 | Outpatient (REF) | payer MEDICARE, MEDICAID, SELFPAY ==
[2024-08-15 08:54] LABS: MANUAL DIFF FLAG NO
[2024-08-15 09:30] LABS: Basophils Percent Auto 0.5 % (0-2); Eosinophils Absolute Auto 0.3 X10*3/uL (0.0-0.4); Eosinophils Percent Auto 3.7 % (0-4); Hematocrit 45.4 % (42.0-52.0); Hemoglobin 14.9 g/dl (14.0-18.0); Imm Gran Abs Auto 0.02 X10*3/uL (0.00-0.03); Imm Gran Pct Auto 0.3 % (0.0-0.4); Lymphocytes Absolute Auto 2.8 X10*3/uL (1.2-4.9); Lymphocytes Percent Auto 36.6 % (20-40); Mean Corpuscular HGB Conc 32.8 g/dl (31.0-36.0); Mean Corpuscular Hemoglobin 28.9 pg (27.0-33.0); Mean Corpuscular Volume 88.2 fL (80.0-98.0); Mean Platelet Volume 11.5 fL (9.4-12.4); Monocytes Absolute Auto 0.7 X10*3/uL (0.1-1.2); Monocytes Percent Auto 9.2 % (2-11); Neutrophils Absolute Auto 3.8 x10*3/uL (2.0-8.3); Neutrophils Percent Auto 49.7 % (45-73); Platelet Count 133 X10*3/uL (160-400); Red Blood Count 5.15 X10*6/uL (4.60-5.80); Red Cell Distribution Width 15.6 % (11.0-16.0); White Blood Count 7.6 X10*3/uL (4.8-10.8)
--- OUTSIDE RECORDS SUMMARY | 2024-08-15 09:41 | XMS_ITS | Continuity of Care Document ---
Author Name [facility] Organization [facility] Care Team Providers Care Gas Pump Attendant Name Role Phone [facility] Unavailable Unavailable Problems Combined list of problems from Department of Defense and Veterans Affairs facilities. It does not include entries that were removed or entered in error. Problem Status Onset Date Problem Type Date of Resolution Comments Source Abdominal aortic aneurysm Active Condition May 07, 2018 Entered By: TOMÁS BROCK Comment: left common iliac artery aneurysm [facility] Adjustment disorder with mixed emotional features Active Condition Nov 17, 2014 Entered By: SHAWN JOHN Comment: [email or web address] Entered By: SHAWN JOHN Comment: Reviewed [facility] Adult screening status Active Condition Dec 07, 2018 Entered By: TOMÁS BROCK Comment: mALB/Cr 88.2H (HEMOGLOBIN A1C 5.6 ) [facility] Aneurysm of iliac artery Active Condition [facility] Aneurysm of left common iliac artery Active Condition [facility] Attention deficit hyperactivity disorder, inattentive presentation (restrictive) (SNOMED CT 373761909) Active Condition Nov 17, 2014 Entered By: SHAWN JOHN Comment: updateAug 04, 2016 Entered By: SHAWN JOHN Comment: Reviewed [facility] Bph W Urinary Obstructn Active Condition [facility] Degeneration of intervertebral disc (ICD-9-CM 722.6) Active Condition [facility] Essential hypertension Active Condition [facility] Family History, Colonic Polyps Active Condition [facility] Gout * (ICD-9-CM 274.9) Active Condition [facility] Hemorrhoids Active Condition [facility] History of thyroid disorder Active Condition [facility] HLD - Hyperlipidemia Active [facility] Hypertension Active [facility] Hypertriglyceridemia * (ICD-9-CM 272.1) Active Condition [facility] Hypothyroid Active Condition [facility] Kidney Stones Active Condition [facility] Low Back Pain, Lumbago Active Condition [facility] Lumbar Radiculopathy (ICD-9-CM 724.4) Active Condition [facility] Lumbosacral spondylosis with radiculopathy (SNOMED CT 639908040) Active Condition [facility] Morbid obesity (SNOMED CT 195287111) Active Condition [facility] Neck Pain (ICD-9-CM 723.1) Active Condition [facility] Obesity Active Condition [facility] Pain in thoracic spine (ICD-9-CM 724.1) Active Condition [facility] Patient requires hospitalization Active Condition May 07, 2018 Entered By: TOMÁS BROCK Comment: UC visit for ABD pain - see ct scan of abd [facility] Personal History of Colonic Polyps Active Condition Feb 28, 2007 Entered By: ROBERT BREWSTER Comment: 3 TAs found on 2006 colonoscopy, repeat 2007.Mar 05, 2008 Entered By: ROBERT BREWSTER Comment: 2 hyperplastic polyps and one anal canal polyp on 2007 rept. [facility] Proteinuria Active Condition Dec 07, 2018 Entered By: TOMÁS BROCK Comment: mALB/Cr 314.2H [facility] Right carotid artery stenosis Active Condition Dec 21, 2018 Entered By: TOMÁS BROCK Comment: carotid US 12/2018 [facility] Right carotid artery stenosis Active Condition [facility] Shared care - specialist and GP Active Condition Dec 01 Entered By: TOMÁS BROCK Comment: rehab med - spine inject [facility] [place] [facility] Shared care - specialist and GP Active Condition October 31 Entered By: TOMÁS BROCK Comment: [facility] - annual surveillance LEFT iliac artery [facility] [place] [facility] Allergies, Adverse Reactions, Alerts Combined list of allergies from Department of Defense and Veterans Affairs facilities. It does not include entries that were removed or entered in error. Substance Category Reaction Severity Reaction type Status Date Reported Comments Source ATORVASTATIN Propensity to adverse reactions to drug (finding) Dizziness active 9 [facility] GEMFIBROZIL Propensity to adverse reactions to drug (finding) Nausea and vomiting active 8 [facility] MELOXICAM Propensity to adverse reactions to drug (finding) Dizziness [facility] Immunizations Combined list of available immunizations from the Department of Defense and Veterans Affairs facilities. Immunization Series Date Given Administered By Site Reaction Lot Number CVX Code Drug Prop And Scenery Maker Status Comments Source COVID-19 ([employer]), VECTOR-NR, [id number], PF, 0.5 ML 1 2020 212 complet ed JSN; [id number]; 1 [facility] INFLUENZA, INJECTABLE, QUADRIVALENT, PRESERVATIVE FREE 2019 150 complet ed [facility] INFLUENZA, INJECTABLE, QUADRIVALENT, PRESERVATIVE FREE 2018 150 complet ed Site: Right Deltoid [facility] INFLUENZA, INJECTABLE, QUADRIVALENT 2017 158 complet ed Site: Right Deltoid [facility] FLU,3 YRS (HISTORICAL) 2016 88 complet ed [facility] FLU,3 YRS (HISTORICAL) 2015 88 complet ed Site: Left Deltoid [facility] PNEUMOCOCCAL POLYSACCHARID E PPV23 2015 33 complet ed [facility] FLU,3 YRS (HISTORICAL) 2014 88 complet ed Site: Right Deltoid [facility] PNEUMOCOCCAL CONJUGATE PCV 13 2014 133 complet ed [facility] FLU,3 YRS (HISTORICAL) 2013 88 complet ed Site: Right Deltoid [facility] ZOSTER (SHINGLES) (HISTORICAL) 2013 121 complet ed Proximal Right Arm [facility] FLU,3 YRS (HISTORICAL) 2012 88 complet ed Site: Right Deltoid [facility] FLU,3 YRS (HISTORICAL) 2012 88 complet ed Site: Left Deltoid [facility] DTAP, UNSPECIFIED FORMULATION 2010 107 complet ed Site: Left Deltoid [facility] FLU,3 YRS (HISTORICAL) 2010 88 complet ed Site: Right Deltoid [facility] PNEUMOCOCCAL, UNSPECIFIED FORMULATION 2010 109 complet ed [facility] FLU,3 YRS (HISTORICAL) 2008 88 complet ed Site: Left Deltoid [facility] FLU,3 YRS (HISTORICAL) 2007 88 complet ed Site: Right Deltoid [facility] FLU,3 YRS (HISTORICAL) 2006 88 complet ed Site: Right Deltoid [facility] Encounters Combined list of: 1) Encounters from Department of Veterans Affairs facilities going backup to the last 18 months, not all VA inpatient encounters are included; 2) Encounters from the Department of Defense facilities going backup to 280 months. Location Location Details Encounter Type Encounter Number Reason For Visit Attending Provider ADM Date DC Date Status Disposition Source [facility] Outpatient Encounter [id number] 08/06 [facility] Social History Combined list of available smoking, tobacco, and other social history from Department of Defense and Veterans Affairs facilities. Social History Type Response Date Comment Source Tobacco smoking status KY[place] PR-TOBACCO FORMER USER 05/28/2021 [facility] [place] [facility] History of tobacco use PR-TOBACCO QUIT 15 YRS OR MORE 05/28/2021 [facility] [place] [facility] History of tobacco use PR-TOBACCO FORMER USER 06/26/2020 [facility] [place] [facility] History [facility] tobacco use LIFETIME NON-TOBACCO USER 07/23/2019 [facility] History of tobacco use QUIT TOBACCO USE > 7 YEARS AGO 07/02/[address] [facility] History of tobacco use QUIT TOBACCO USE > 7 YEARS AGO 06/28/2019 [facility] [place] [facility] History of tobacco use QUIT TOBACCO USE > 7 YEARS AGO 08/10/2017 quit in 1974 [facility] [place] [facility] History of tobacco use QUIT TOBACCO USE > 7 YEARS AGO 08/04/2016 Over 30 years [facility] [place] [facility] History of tobacco use QUIT TOBACCO USE > 7 YEARS AGO 07/01/2015 Over 30 years [facility] [place] [facility] History of tobacco use QUIT TOBACCO USE > 7 YEARS AGO 01/11/2010 [facility] [place] [facility] History of tobacco use V1-PT DECLINES TOBACCO CESSATION MEDS 10/25/2007 [facility] [place] [facility] History of tobacco use V1-PT DECLINES TOBACCO CESSATION MEDS 09/28/2007 [facility] [place] [facility] History of tobacco use QUIT TOBACCO USE 1-7 YEARS AGO 05/29/2007 [facility] [place] [facility] History of tobacco use QUIT TOBACCO USE > 7 YEARS AGO 10/25/2006 quit 30 years ago [facility] [place] [facility] Plan of Care List of future care activities from Department of Veterans Affairs facilities. Additional future care activities may be listed in the Assessment and Plan section. Date/Time Care Activity Care Activity Detail Facili ty 08/20/2024 AMBULATORY - REHAB MEDICINE AMBULATORY - REHAB MEDIC[facility] [place] [facility]
--- OUTSIDE RECORDS SUMMARY | 2024-08-15 09:41 | XMS_ITS ---
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 This section includes the names of all active insurance providers for the patient. Insurance Provider Type of Coverage Plan Name Start of Policy Coverage End of Policy Coverage Group Number Member ID Insurance Provider's Telephone Number Policy Hernandez's Name Patient's Relationship to Policy Hernandez MEDICARE (WNR) MEDICARE (M) PART B Dec 10, 2014 PART B [id number] EVAWILY VALLE PATIENT MEDICARE (WNR) MEDICARE (M) PART B Dec 10, 2014 PART B [id number] EVAWILY PATIENT MEDICARE (WNR) MEDICARE (M) PART A Mar 12, 2013 PART A [id number] EVAWILY VALLE PATIENT MEDICARE (WNR) MEDICARE (M) PART A Mar 12, 2013 PART A [id number] EVARANJANAWILY PATIENT Selected Encounter This section includes the information on record at [place] for the Encounter. Date/Time Encounter Type Encounter Description Reason Pro vider Source Aug 06, 2024 07:15 AM Outpatient Encounter [facility] Encounter Template Text not used by PA Plan of Treatment: Future Appointments (+ 6 months) and Future Tests (+/- 45 days) The Plan of Treatment section includes future care activities for the patient from all [facility]. This section includes future appointments and future orders which are active, pending or scheduled. Future Appointments This section includes appointments that were scheduled to occur 6 months from the date of the Encounter, up to a maximum of 20 appointments. The data comes from all [place] treatment facilities. Appointment Date/Time Appointment Type Appointme nt Facility Name Aug 20, 2024 01:00 PM [facility] Social History: Smoking Status (Most current) and Tobacco Use (All prior to encounter date) This section includes the most current, and the historical, smoking and tobacco- related health factors from the [place] facility where the Encounter took place. Current Smoking Status This section includes the most current smoking, or tobacco-related health factor, from the [place] facility where the Encounter took place. Date/Time Current Smoking Status Comment [facility] May 28, 2021 09:00 AM PA-TOBACCO QUIT 15 YRS OR MORE [facility] Tobacco Use History This section includes a history of the smoking, or tobacco-related health factors, that were collected on or before the date of the Encounter. The data comes from the [place] facility where the Encounter took place. Date/Time Smoking Status/Tobac co Use Comment Facility May 28, 2021 09:00 AM VA-TOBACCO QUIT 15 YRS OR MORE [facility] [place] [facility] Jun 26, 2020 10:00 AM VA-TOBACCO FORMER USER [facility] [place] [facility] Jun 26, 2020 10:00 AM VA-TOBACCO QUIT 15 YRS OR MORE [facility] [place] [facility] Nov 26, 2018 02:44 PM VA-TOBACCO FORMER USER [facility] [place] [facility] Nov 26, 2018 02:44 PM VA-TOBACCO QUIT 15 YRS OR MORE [facility] [place] [facility] Aug 10, 2017 02:39 PM QUIT TOBACCO USE > 7 YEARS AGO quit in 1973 [facility] [place] [facility] Aug 04, 2016 11:24 AM QUIT TOBACCO USE > 7 YEARS AGO Over 30 years [facility] Jul 01, 2015 11:14 AM QUIT TOBACCO USE > 7 YEARS AGO Over 30 years [facility] Jan 11, 2010 09:52 AM QUIT TOBACCO USE > 7 YEARS AGO [facility] October 25, 2007 09:35 AM V1-PT DECLINES REF TO TOBACCO CESS PRGM [facility] October 25, 2007 09:35 AM V1-PT DECLINES TOBACCO CESSATION MEDS [facility] October 25, 2007 09:35 AM V1-PT THINKING ABOUT QUIT TOBACCO USE [facility] Sep 28, 2007 01:42 PM V1-PT DECLINES REF TO TOBACCO CESS [facility] Sep 28, 2007 01:42 PM V1-PT DECLINES TOBACCO CESSATION MEDS [facility] Sep 28, 2007 01:42 PM V1-PT NOT INTERESTED IN QUIT TOBACCO USE [facility] May 29, 2007 01:44 PM QUIT TOBACCO USE 1-7 YEARS AGO [facility] October 25, 2006 10:46 AM QUIT TOBACCO USE > 7 YEARS AGO quit 30 years ago [facility] Encounter Notes: All associated encounter notes This section contains the clinical notes associated to the Encounter. Date/Time Encounter Note(s) Provider Source Aug 06, 2024 07:17 AM OCCUPATIONAL THERA PY NOTE: LOCAL TITLE: OCCUPATIONAL THERAPY STANDARD TITLE: OCCUPATIONAL THERAPY NOTE DATE OF NOTE: AUG 06, 2024@07:17 ENTRY DATE: AUG 06, 2024@07:17:42 AUTHOR: FIONA HANSON EXP COSIGNER: URGENCY: STATUS: COMPLETED donor relations manager, Beth Mcdermott, requesting evaluation for for a bariatric [id number] chair. Appointment scheduled for 08/20/24 @ 1:00. Will be seen at the [facility]. /edd/ FIONA HANSON OTR/L OCCUPATIONAL THERAPIST Signed: 08/06/2024 07:18 HANSON,FIONAJONA VEGA [facility]
[2024-08-15 09:58] LABS: Uric Acid 5.1 mg/dL (3.4-7.0)
== END 2024-08-15 08:53 | disposition home or self-care (01) ==
LOC: HO.HSH2W 08:52
PROVIDERS: Visit Provider Internal Medicine
DX: M10.9 Gout, unspecified (principal); D69.6 Thrombocytopenia, unspecified
CPT/HCPCS: 36415; 84550; 85025

== ENCOUNTER 2024-09-05 07:42 | Outpatient (REF) | payer MEDICARE, MEDICAID, SELFPAY ==
[2024-09-05 08:32] LABS: Vitamin D 25-OH Total 13.8 ng/mL (>30)
== END 2024-09-05 07:43 | disposition home or self-care (01) ==
LOC: HO.HSH2W 07:42
PROVIDERS: Visit Provider Internal Medicine Interventional Cardiology
DX: E03.9 Hypothyroidism, unspecified (principal)
CPT/HCPCS: 36415; 82306